=== PATIENT | male | born 1960 | race Caucasian/White ===

== ENCOUNTER → 2019-10-27 | Emergency (ER) | payer MEDICAID ==
[~2019-10-27] VITALS: Ht 182.9 cm; Wt 90.7 kg
[~2019-10-27] MED LIST: AMLO10TA13; CARV3.1240; CLON0.2T; DOXA4TAB5 PO; HYDR-4298 PO; HYDR25TA4; LISI40TA; OXY20CRT; POTASSIUM CHL 20 Meq TABLET PO ONE
[2019-10-27 18:36] LABS: Basophils # (auto) 0.1 10 ^3/uL (0-0.2); Basophils % (auto) 1.7 % (0.0-2.0); Eosinophils # (auto) 0.5 10 ^3/uL (0-0.8); Hematocrit 41.6 % (41.0-53.0); Hemoglobin 14.1 g/dL (13.5-17.5); Lymphocytes # (auto) 1.7 10 ^3/uL (0.4-5.4); Lymphocytes % (auto) 25.1 % (10.0-50.0); Mean Corpuscular Hemoglobin 30.6 pg (28.0-32.0); Mean Corpuscular Volume 90.1 fL (80.0-100.0); Monocytes # (auto) 0.7 10 ^3/uL (0-1.3); Monocytes % (auto) 10.5 % (0.0-12.0); Neutrophils # (auto) 3.7 10 ^3/uL (1.6-8.6); Neutrophils % (auto) 54.7 % (37.0-80.0); Nucleated Red Blood Cells % 0.1 %; Platelet Count (auto) 236 10^3/uL (140-450); Red Blood Cells 4.62 10^6/uL (4.5-5.90); Red Cell Distribution Width 14.3 % (11.8-14.3); White Blood Cell 6.7 10^3/uL (4.4-10.8)
[2019-10-27 18:48] LABS: Albumin 2.7 g/dL (3.4-5.0); Anion Gap 8 (5-15); BUN/Creatinine Ratio 21.9; Blood Urea Nitrogen 44 mg/dL (7-18); Calcium 8.3 mg/dL (8.5-10.1); Carbon Dioxide 27 mmol/L (21-32); Chloride 102 mmol/L (98-107); GFR African American 44 mL/min; GFR Non-African American 37 mL/min; Glucose 261 mg/dL (74-106); Sodium 137 mmol/L (136-145)
[2019-10-27 18:55] LABS: Alanine Aminotransferase 41 U/L (16-61); Alkaline Phosphatase 156 U/L (45-117); Aspartate Aminotransferase 28 U/L (15-37); Bilirubin, Total 0.4 mg/dL (0.2-1.0); Total Protein 6.5 g/dL (6.4-8.2)
[2019-10-27 19:39] VITALS: BP 125/85
== END | disposition home or self-care (01) ==
LOC: EDUNIT# 17:08 → EDBD 17:19 → ER 17:19
DX: I13.0 Hypertensive heart and chronic kidney disease with heart failure and stage 1 through stage 4 chronic kidney disease, or unspecified chronic kidney disease (principal); N18.3 Chronic kidney disease, stage 3 (moderate); I50.9 Heart failure, unspecified; R79.89 Other specified abnormal findings of blood chemistry; R74.8 Abnormal levels of other serum enzymes; J44.9 Chronic obstructive pulmonary disease, unspecified; E78.5 Hyperlipidemia, unspecified
CPT/HCPCS: 36415; 70450; 71045; 80053; 83880; 84443; 84484; 85025; 93005

== ENCOUNTER 2020-10-03 21:02 | Emergency (ER) | payer MEDICAID ==
[~2020-10-03] VITALS: Ht 182.9 cm; Wt 81.6 kg
[~2020-10-03 21:02] MED LIST changes: +AMLO-496; -AMLO10TA13; -LISI40TA; +LISI40TA11; -POTASSIUM CHL 20 Meq TABLET PO ONE
[2020-10-03 22:13] LABS: Basophils # (auto) 0.1 10 ^3/uL (0-0.2); Basophils % (auto) 1.4 % (0.0-2.0); Eosinophils # (auto) 0.6 10 ^3/uL (0-0.8); Eosinophils % (auto) 6.9 % (0.0-7.0); Hematocrit 45.6 % (41.0-53.0); Hemoglobin 15.8 g/dL (13.5-17.5); Lymphocytes # (auto) 2.2 10 ^3/uL (0.4-5.4); Lymphocytes % (auto) 26.8 % (10.0-50.0); Mean Corpuscular Hemoglobin 30.6 pg (28.0-32.0); Mean Corpuscular Hgb Conc. 34.8 g/dL (32.0-36.0); Monocytes # (auto) 0.6 10 ^3/uL (0-1.3); Neutrophils # (auto) 4.6 10 ^3/uL (1.6-8.6); Neutrophils % (auto) 56.9 % (37.0-80.0); Nucleated Red Blood Cells % 0.1 %; Platelet Count (auto) 293 10^3/uL (140-450); Red Blood Cells 5.18 10^6/uL (4.5-5.90); Red Cell Distribution Width 15.3 % (11.8-14.3); White Blood Cell 8.1 10^3/uL (4.4-10.8)
[2020-10-03 22:30] LABS: Alanine Aminotransferase 25 U/L (16-61); Albumin 3.3 g/dL (3.4-5.0); Anion Gap 5 (5-15); Aspartate Aminotransferase 39 U/L (15-37); BUN/Creatinine Ratio 16.2; Blood Urea Nitrogen 32 mg/dL (7-18); Calcium 8.8 mg/dL (8.5-10.1); Carbon Dioxide 27 mmol/L (21-32); Chloride 101 mmol/L (98-107); GFR African American 45 mL/min; GFR Non-African American 37 mL/min; Glucose 137 mg/dL (74-106); Potassium 4.8 mmol/L (3.5-5.1); Sodium 133 mmol/L (136-145)
[2020-10-03] MEDS ORDERED: MORPHINE SULF INJ 2 MG/ML SYRINGE 1ML IV ONE (22:30)
[2020-10-03 22:34] LABS: Alkaline Phosphatase 137 U/L (45-117); Bilirubin, Total 0.5 mg/dL (0.2-1.0); Total Protein 7.5 g/dL (6.4-8.2)
[2020-10-04 02:24] VITALS: BP 154/102
== END 2020-10-04 02:26 | disposition home or self-care (01) ==
LOC: EDBD 21:02 → ER 21:08
DX: G93.89 Other specified disorders of brain (principal); I11.0 Hypertensive heart disease with heart failure; I50.9 Heart failure, unspecified; J44.9 Chronic obstructive pulmonary disease, unspecified; E78.5 Hyperlipidemia, unspecified; F17.210 Nicotine dependence, cigarettes, uncomplicated; Z90.49 Acquired absence of other specified parts of digestive tract
CPT/HCPCS: 36415; 70450; 80053; 83880; 84484; 85025; 93005; 96374; 99285; J2270

== ENCOUNTER 2020-11-24 19:42 | Emergency (ER) | payer MEDICAID ==
[~2020-11-24] VITALS: Ht 177.8 cm; Wt 74.8 kg
[2020-11-24 19:44] VITALS: BP 159/106
[2020-11-24 20:47] LABS: Urine Bacteria NONE SEEN /hpf (None Seen); Urine Blood Negative /uL (Negative); Urine Specific Gravity 1.013 (1.001-1.035); Urine WBC 1 /hpf (0 - 3)
== END 2020-11-24 23:03 | disposition left against medical advice (07) ==
LOC: EDBD 19:42 → EDUNIT# 19:42 → ER 19:46
DX: L02.212 Cutaneous abscess of back [any part, except buttock and flank] (principal); Z53.21 Procedure and treatment not carried out due to patient leaving prior to being seen by health care provider
CPT/HCPCS: 81001

== ENCOUNTER 2021-08-28 23:29 | Inpatient (IN) | payer MEDICAID ==
[~2021-08-28] VITALS: Ht 185.4 cm; Wt 83.9 kg
[~2021-08-28 23:29] MED LIST changes: -DOXA4TAB5 PO; +DOXA4TAB6 PO
[2021-08-28] MEDS ORDERED: ADENOSINE 6 MG/2 ML INJ IV ONE ×2 (23:35→23:45)
[2021-08-28] MEDS ORDERED: IOHEXOL 350 MG/ML 100ML IJ ONE (23:49)
[2021-08-29] VITALS (25 sets, daily range): BP systolic 121–204; BP diastolic 77–148
[2021-08-29 00:16] LABS: Basophils # (auto) 0.2 10 ^3/uL (0-0.2); Basophils % (auto) 2.6 % (0.0-2.0); Eosinophils # (auto) 0.4 10 ^3/uL (0-0.8); Eosinophils % (auto) 6.4 % (0.0-7.0); Hemoglobin 16.8 g/dL (13.5-17.5); Lymphocytes # (auto) 1.7 10 ^3/uL (0.4-5.4); Lymphocytes % (auto) 27.3 % (10.0-50.0); Mean Corpuscular Hemoglobin 30.1 pg (28.0-32.0); Mean Corpuscular Hgb Conc. 34.2 g/dL (32.0-36.0); Monocytes # (auto) 0.4 10 ^3/uL (0-1.3); Monocytes % (auto) 6.6 % (0.0-12.0); Neutrophils # (auto) 3.6 10 ^3/uL (1.6-8.6); Neutrophils % (auto) 57.1 % (37.0-80.0); Nucleated Red Blood Cells % 0.2 %; Red Blood Cells 5.57 10^6/uL (4.5-5.90); Red Cell Distribution Width 14.9 % (11.8-14.3); White Blood Cell 6.4 10^3/uL (4.4-10.8)
[2021-08-29 00:25] LABS: Albumin 3.2 g/dL (3.4-5.0); BUN/Creatinine Ratio 11.9; Calcium 8.4 mg/dL (8.5-10.1); Magnesium 2.2 mg/dL (1.6-2.6); Potassium 3.2 mmol/L (3.5-5.1)
[2021-08-29 00:27] LABS: Bilirubin, Total 0.6 mg/dL (0.2-1.0); Total Protein 6.7 g/dL (6.4-8.2)
[2021-08-29 00:39] LABS: INR 1.14 (0.9-1.15); Partial Thromboplastin Time 33.3 sec (23.6-33.0)
[2021-08-29] MEDS ORDERED: SODIUM CHLORIDE 0.9% 1,000 ML IV ONE ×2 (00:45→04:45)
[2021-08-29] MEDS ORDERED: diazePAM 5 MG TAB PO ONE (02:00)
[2021-08-29] MEDS ORDERED: HYDROcodone-ACET 5/325MG TAB PO ONE (02:00)
[2021-08-29 02:06] LABS: Urine WBC None Seen /hpf (0 - 3)
[2021-08-29 02:23] LABS: Urine Bacteria NONE SEEN /hpf (None Seen); Urine Blood Negative /uL (Negative)
[2021-08-29] MEDS ORDERED: NITROGLYCERIN 2% OINT 1GM PKG TD ONE (06:00)
[2021-08-29] MEDS ORDERED: hydrALAZINE HCL 20 MG/ML VL IV ONE (06:45)
[2021-08-29] MEDS ORDERED: NITROGLYCERIN 0.4 MG SL TAB SL PRN (11:30)
[2021-08-29] MEDS ORDERED: MORPHINE SULFATE INJECTION 2 MG/ML SYRG IV PRN (11:30)
[2021-08-29] MEDS ORDERED: ONDANSETRON HCL 4 MG/2 ML VIAL IV PRN (11:30)
[2021-08-29] MEDS: METOPROLOL TARTRATE 1MG/1ML-5ML VIAL IV PRN (12:07)
[2021-08-29] MEDS: hydrALAZINE HCL 25 MG TAB PO SCH ×2 (12:11→21:30)
[2021-08-29] MEDS: SODIUM CHLORIDE 0.9% 1,000 ML IV SCH ×2 (12:44→19:20)
[2021-08-29] MEDS ORDERED: DOXAZOSIN MESYL 2 MG TAB PO SCH (13:00)
[2021-08-29] MEDS ORDERED: oxyCODONE ER 20 MG TAB PO SCH (14:00)
[2021-08-29] MEDS ORDERED: cloNIDine HCL 0.1 MG TAB PO ONE (14:45)
[2021-08-29] MEDS ORDERED: CARVEDILOL 3.125 MG TAB PO ONE (14:45)
[2021-08-29] MEDS ORDERED: hydrALAZINE HCL 25 MG TAB PO ONE (14:45)
[2021-08-29 16:41] LABS: BUN/Creatinine Ratio 9.9; Calcium 8.3 mg/dL (8.5-10.1)
[2021-08-29] MEDS: NITROGLYCERIN 50MG/250ML 250 ML IV SCH (18:00)
[2021-08-29] MEDS ORDERED: POTASSIUM CHL 20 Meq TABLET PO ONE (18:15)
[2021-08-29 18:19] LABS: Alcohol, Urine < 3.0 mg/dL (0-10); Amphetamine Screen, Urine POSITIVE (NEGATIVE); Barbiturate Scree,Urine NEGATIVE (NEGATIVE); Benzodiazephine Screen, Urine NEGATIVE (NEGATIVE); Cannabinoid Screen, Urine NEGATIVE (NEGATIVE); Cocaine Screen, Urine NEGATIVE (NEGATIVE); Opiate Scree,Urine NEGATIVE (NEGATIVE); Phencyclidine Screen, Urine NEGATIVE (NEGATIVE)
[2021-08-29] MEDS: cloNIDine HCL 0.1 MG TAB PO SCH (21:31)
[2021-08-29] MEDS: ENOXAPARIN SOD 60 MG/0.6 ML SYRINGE SC SCH (21:32)
[2021-08-29] MEDS: ATORVASTATIN 20 MG TAB PO SCH (21:32)
[2021-08-29] MEDS ORDERED: CARVEDILOL 3.125 MG TAB PO SCH (22:00)
[2021-08-29] MEDS: oxyCODONE ER 20 MG TAB PO SCH (22:03)
[2021-08-30] VITALS (50 sets, daily range): BP systolic 113–184; BP diastolic 76–118
[2021-08-30] MEDS: SODIUM CHLORIDE 0.9% 1,000 ML IV SCH ×2 (00:50→06:51)
[2021-08-30] MEDS: METOPROLOL TARTRATE 1MG/1ML-5ML VIAL IV PRN ×2 (01:11→07:56)
[2021-08-30 04:56] LABS: Basophils # (auto) 0.1 10 ^3/uL (0-0.2); Basophils % (auto) 2.5 % (0.0-2.0); Eosinophils # (auto) 0.5 10 ^3/uL (0-0.8); Eosinophils % (auto) 7.5 % (0.0-7.0); Hematocrit 43.8 % (41.0-53.0); Hemoglobin 14.7 g/dL (13.5-17.5); Lymphocytes # (auto) 1.9 10 ^3/uL (0.4-5.4); Lymphocytes % (auto) 32.2 % (10.0-50.0); Mean Corpuscular Hemoglobin 29.8 pg (28.0-32.0); Mean Corpuscular Hgb Conc. 33.6 g/dL (32.0-36.0); Mean Corpuscular Volume 88.6 fL (80.0-100.0); Monocytes # (auto) 0.5 10 ^3/uL (0-1.3); Monocytes % (auto) 7.8 % (0.0-12.0); Nucleated Red Blood Cells % 0.2 %; Red Blood Cells 4.95 10^6/uL (4.5-5.90); Red Cell Distribution Width 14.9 % (11.8-14.3); White Blood Cell 6.1 10^3/uL (4.4-10.8)
[2021-08-30] MEDS: hydrALAZINE HCL 25 MG TAB PO SCH ×3 (05:05→22:17)
[2021-08-30 05:14] LABS: BUN/Creatinine Ratio 12.9; Calcium 8.3 mg/dL (8.5-10.1); INR 1.14 (0.9-1.15); Potassium 3.4 mmol/L (3.5-5.1)
[2021-08-30] MEDS: NITROGLYCERIN 50MG/250ML 250 ML IV SCH (06:22)
[2021-08-30] MEDS: cloNIDine HCL 0.1 MG TAB PO SCH ×2 (10:00→22:16)
[2021-08-30] MEDS ORDERED: hydrALAZINE HCL 25 MG TAB PO SCH (10:00)
[2021-08-30] MEDS: ENOXAPARIN SOD 60 MG/0.6 ML SYRINGE SC SCH ×2 (10:00→22:17)
[2021-08-30] MEDS: oxyCODONE ER 20 MG TAB PO SCH ×2 (10:00→22:35)
[2021-08-30] MEDS: ASPirin 81 mg TAB PO SCH (10:00)
[2021-08-30] MEDS: LABETALOL HCL 200 MG TAB PO SCH ×2 (13:50→22:15)
[2021-08-30] MEDS: ATORVASTATIN 20 MG TAB PO SCH (22:15)
[2021-08-31] VITALS (14 sets, daily range): BP systolic 101–149; BP diastolic 69–103
[2021-08-31] MEDS: SODIUM CHLORIDE 0.9% 1,000 ML IV SCH (04:35)
[2021-08-31 05:07] LABS: BUN/Creatinine Ratio 13.4; Calcium 8.1 mg/dL (8.5-10.1); Potassium 3.3 mmol/L (3.5-5.1)
[2021-08-31] MEDS: LABETALOL HCL 200 MG TAB PO SCH ×2 (06:00→14:00)
[2021-08-31] MEDS: hydrALAZINE HCL 25 MG TAB PO SCH ×2 (09:13→14:22)
[2021-08-31] MEDS: oxyCODONE ER 20 MG TAB PO SCH (09:13)
[2021-08-31] MEDS: ASPirin 81 mg TAB PO SCH (09:13)
[2021-08-31] MEDS: ENOXAPARIN SOD 60 MG/0.6 ML SYRINGE SC SCH (09:14)
[2021-08-31] MEDS: cloNIDine HCL 0.1 MG TAB PO SCH (10:00)
[2021-08-31] MEDS ORDERED: POTASSIUM CHL 20 Meq TABLET PO ONE (11:45)
[2021-08-31] MEDS ORDERED: DOXA4TAB6 PO (11:46)
[2021-08-31] MEDS ORDERED: AMLO-496 PO (11:46)
[2021-08-31] MEDS ORDERED: ATOR20TA50 PO (11:46)
[2021-08-31] MEDS ORDERED: CLON0.1T PO (11:46)
[2021-08-31] MEDS ORDERED: HYDR25TA87 PO (11:46)
[2021-08-31] MEDS ORDERED: ASPI1CHW15 PO (11:46)
== END 2021-08-31 15:32 | disposition home health service (06) | DRG 201 ==
LOC: ER 23:29 → EDBD 23:29 → TELE 08-29 11:26 → ICU CENTRL 08-29 12:25 → DOU IN ICU 08-29 12:29
PROVIDERS: ADMIT Hospitalist; ATTEND Hospitalist
PROC: 5A2204Z Restoration of Cardiac Rhythm, Single (ICD-10-PCS; principal; 2021-08-29)
DX: I47.1 Supraventricular tachycardia (principal); I13.0 Hypertensive heart and chronic kidney disease with heart failure and stage 1 through stage 4 chronic kidney disease, or unspecified chronic kidney disease; I50.9 Heart failure, unspecified; F17.210 Nicotine dependence, cigarettes, uncomplicated; N18.30 Chronic kidney disease, stage 3 unspecified; J44.9 Chronic obstructive pulmonary disease, unspecified; E78.5 Hyperlipidemia, unspecified; F15.10 Other stimulant abuse, uncomplicated; Z20.822 Contact with and (suspected) exposure to COVID-19; I16.0 Hypertensive urgency; Z85.841 Personal history of malignant neoplasm of brain; Z91.14 Patient's other noncompliance with medication regimen; Z88.8 Allergy status to other drugs, medicaments and biological substances; Z90.49 Acquired absence of other specified parts of digestive tract
CPT/HCPCS: 36415; 71045; 71275; 76870; 80048; 80053; 80307; 81001; 83735; 83880; 84484; 85025; 85379; 85610; 85730; 87081; 93005; 93306; 96361; 96374; 96375; 99291; G0378; J0153

== ENCOUNTER 2021-08-31 19:59 | Inpatient (IN) | payer MEDICAID ==
[~2021-08-31] VITALS: Ht 182.9 cm; Wt 63.9 kg
[~2021-08-31 19:59] MED LIST changes: +AMLO-496 PO; +ASPI1CHW15 PO; +ATOR20TA50 PO; +CLON0.1T PO; +HYDR25TA87 PO
[2021-08-31 22:19] LABS: Basophils # (auto) 0.2 10 ^3/uL (0-0.2); Basophils % (auto) 2.7 % (0.0-2.0); Eosinophils # (auto) 0.5 10 ^3/uL (0-0.8); Eosinophils % (auto) 8.2 % (0.0-7.0); Hematocrit 42.5 % (41.0-53.0); Hemoglobin 14.4 g/dL (13.5-17.5); Lymphocytes # (auto) 1.4 10 ^3/uL (0.4-5.4); Mean Corpuscular Hgb Conc. 33.9 g/dL (32.0-36.0); Mean Corpuscular Volume 88.6 fL (80.0-100.0); Monocytes # (auto) 0.4 10 ^3/uL (0-1.3); Monocytes % (auto) 6.1 % (0.0-12.0); Neutrophils # (auto) 3.8 10 ^3/uL (1.6-8.6); Nucleated Red Blood Cells % 0.2 %; Red Cell Distribution Width 15.1 % (11.8-14.3); White Blood Cell 6.3 10^3/uL (4.4-10.8)
[2021-08-31 22:26] LABS: Calcium 8.4 mg/dL (8.5-10.1); Potassium 3.8 mmol/L (3.5-5.1)
[2021-08-31 22:29] LABS: Bilirubin, Total 0.5 mg/dL (0.2-1.0); Total Protein 6.4 g/dL (6.4-8.2)
[2021-08-31] MEDS ORDERED: SODIUM CHLORIDE 0.9% 500 ML IV ONE (23:15)
[2021-09-01 00:45] LABS: Urine Bacteria NONE SEEN /hpf (None Seen); Urine Blood Negative /uL (Negative); Urine WBC <1 /hpf (0 - 3)
[2021-09-01 00:51] LABS: Alcohol, Urine < 3.0 mg/dL (0-10); Amphetamine Screen, Urine NEGATIVE (NEGATIVE); Barbiturate Scree,Urine NEGATIVE (NEGATIVE); Cannabinoid Screen, Urine NEGATIVE (NEGATIVE); Cocaine Screen, Urine NEGATIVE (NEGATIVE); Opiate Scree,Urine NEGATIVE (NEGATIVE); Phencyclidine Screen, Urine NEGATIVE (NEGATIVE)
[2021-09-01 00:57] LABS: Benzodiazephine Screen, Urine POSITIVE (NEGATIVE)
[2021-09-01] MEDS ORDERED: NIFEdipine 10 MG CAP PO ONE (03:15)
[2021-09-01] MEDS ORDERED: hydrALAZINE HCL 25 MG TAB PO SCH (03:15)
[2021-09-01] MEDS: hydrALAZINE HCL 25 MG TAB PO SCH ×2 (11:05→20:22)
[2021-09-01] MEDS ORDERED: cloNIDine HCL 0.1 MG TAB PO ONE (11:45)
[2021-09-01] MEDS: cloNIDine HCL 0.1 MG TAB PO SCH ×2 (14:44→22:00)
[2021-09-01 22:00] VITALS: BP 148/103
[2021-09-01] MEDS: DexAMETHasone 4 MG TAB PO SCH (22:00)
[2021-09-02] VITALS (7 sets, daily range): BP systolic 116–149; BP diastolic 77–103
[2021-09-02] MEDS: hydrALAZINE HCL 25 MG TAB PO SCH ×3 (03:00→18:29)
[2021-09-02] MEDS: DexAMETHasone 4 MG TAB PO SCH ×4 (06:01→21:56)
[2021-09-02] MEDS: cloNIDine HCL 0.1 MG TAB PO SCH ×3 (06:01→21:56)
[2021-09-02] MEDS: amLODIPine BESYLATE 5 MG TAB PO SCH (09:30)
[2021-09-02] MEDS ORDERED: amLODIPine BESYLATE 5 MG TAB PO SCH (10:00)
[2021-09-02] MEDS: HYDROcodone-ACET 5/325MG TAB PO PRN (23:00)
[2021-09-03] MEDS: HYDROcodone-ACET 5/325MG TAB PO PRN ×2 (03:33→17:11)
[2021-09-03] MEDS: hydrALAZINE HCL 25 MG TAB PO SCH ×3 (03:33→18:18)
[2021-09-03 05:04] VITALS: BP 147/97
[2021-09-03] MEDS: DexAMETHasone 4 MG TAB PO SCH ×4 (05:56→21:59)
[2021-09-03] MEDS: cloNIDine HCL 0.1 MG TAB PO SCH ×3 (05:56→21:59)
[2021-09-03 07:45] VITALS: BP 138/92
[2021-09-03 08:42] VITALS: BP 138/92
[2021-09-03] MEDS: amLODIPine BESYLATE 5 MG TAB PO SCH (09:31)
[2021-09-03 12:48] VITALS: BP 137/94
[2021-09-03] MEDS ORDERED: DEX4T PO (13:20)
[2021-09-03 16:49] VITALS: BP 140/89
[2021-09-03 22:00] VITALS: BP 156/103
[2021-09-04] MEDS: HYDROcodone-ACET 5/325MG TAB PO PRN ×2 (00:39→09:18)
[2021-09-04] MEDS: hydrALAZINE HCL 25 MG TAB PO SCH ×3 (03:00→17:18)
[2021-09-04 05:00] VITALS: BP 151/94
[2021-09-04] MEDS: cloNIDine HCL 0.1 MG TAB PO SCH ×2 (06:10→13:48)
[2021-09-04] MEDS: DexAMETHasone 4 MG TAB PO SCH (06:11)
[2021-09-04 08:25] VITALS: BP 156/94
[2021-09-04 09:00] VITALS: BP 156/94
[2021-09-04] MEDS: amLODIPine BESYLATE 5 MG TAB PO SCH (09:17)
[2021-09-04] MEDS ORDERED: DexAMETHasone 4 MG TAB PO SCH (10:00)
[2021-09-04] MEDS ORDERED: FAMOTIDINE 20 MG TAB PO SCH (10:00)
[2021-09-04] MEDS ORDERED: oxyCODONE ER 10 MG TAB PO SCH (10:00)
[2021-09-04 13:00] VITALS: BP 149/96
[2021-09-04 17:00] VITALS: BP 132/83
[2021-09-04 17:26] VITALS: BP 132/83
[2021-09-04] MEDS ORDERED: SENNA 8.6 MG TAB PO SCH (22:00)
== END 2021-09-04 18:37 | DRG 58 ==
LOC: EDBD 19:59 → ER 20:03 → TELE 09-01 18:20 → TELE-WESTW 09-01 21:00
PROVIDERS: ADMIT Hospitalist; ATTEND Hospitalist
DX: G93.9 Disorder of brain, unspecified (principal); I13.0 Hypertensive heart and chronic kidney disease with heart failure and stage 1 through stage 4 chronic kidney disease, or unspecified chronic kidney disease; I50.9 Heart failure, unspecified; D49.6 Neoplasm of unspecified behavior of brain; F15.10 Other stimulant abuse, uncomplicated; Z20.822 Contact with and (suspected) exposure to COVID-19; N18.30 Chronic kidney disease, stage 3 unspecified; F17.210 Nicotine dependence, cigarettes, uncomplicated; J44.9 Chronic obstructive pulmonary disease, unspecified; Z82.49 Family history of ischemic heart disease and other diseases of the circulatory system; Z83.3 Family history of diabetes mellitus; Z91.19 Patient's noncompliance with other medical treatment and regimen; Z90.49 Acquired absence of other specified parts of digestive tract
CPT/HCPCS: 36415; 70450; 71045; 80053; 80307; 80320; 81001; 83880; 84484; 85025; 96360; 97116; 97163; 97530; G0378

== ENCOUNTER 2021-09-12 21:20 | Inpatient (IN) | payer MEDICAID ==
[~2021-09-12] VITALS: Ht 188 cm; Wt 91.5 kg
[~2021-09-12 21:20] MED LIST changes: -AMLO-496; -CARV3.1240; -CLON0.2T; +DEX4T PO; -HYDR-4298 PO; -HYDR25TA4; -LISI40TA11
[2021-09-12 22:22] LABS: Basophils # (auto) 0 10 ^3/uL (0-0.2); Basophils % (auto) 0.1 % (0.0-2.0); Eosinophils # (auto) 0.1 10 ^3/uL (0-0.8); Eosinophils % (auto) 0.6 % (0.0-7.0); Hematocrit 41.1 % (41.0-53.0); Hemoglobin 13.8 g/dL (13.5-17.5); Lymphocytes # (auto) 1.1 10 ^3/uL (0.4-5.4); Mean Corpuscular Hemoglobin 29.9 pg (28.0-32.0); Mean Corpuscular Hgb Conc. 33.6 g/dL (32.0-36.0); Mean Corpuscular Volume 89.1 fL (80.0-100.0); Monocytes # (auto) 1.4 10 ^3/uL (0-1.3); Monocytes % (auto) 7.8 % (0.0-12.0); Neutrophils # (auto) 15.1 10 ^3/uL (1.6-8.6); Neutrophils % (auto) 85.5 % (37.0-80.0); Red Blood Cells 4.61 10^6/uL (4.5-5.90); Red Cell Distribution Width 15.5 % (11.8-14.3); White Blood Cell 17.6 10^3/uL (4.4-10.8)
[2021-09-12 22:43] LABS: Calcium 8.2 mg/dL (8.5-10.1); Magnesium 2.3 mg/dL (1.6-2.6); Potassium 4.1 mmol/L (3.5-5.1)
[2021-09-12 22:47] LABS: INR 1.13 (0.9-1.15); Partial Thromboplastin Time 25.6 sec (23.6-33.0)
[2021-09-12 22:49] LABS: Albumin 2.5 g/dL (3.4-5.0); BUN/Creatinine Ratio 34.8; Bilirubin, Total 0.4 mg/dL (0.2-1.0); Total Protein 5.3 g/dL (6.4-8.2)
[2021-09-13 06:26] LABS: Urine Bacteria NONE SEEN /hpf (None Seen); Urine Blood Negative /uL (Negative); Urine Specific Gravity 1.015 (1.001-1.035); Urine WBC <1 /hpf (0 - 3)
[2021-09-13] MEDS ORDERED: AZITHROMYCIN 250 MG TAB PO ONE (16:00)
[2021-09-13] MEDS ORDERED: cefTRIAXone 1GM/50ML D5W 50 ML IV ONE (16:00)
[2021-09-13] MEDS ORDERED: ONDANSETRON HCL 4 MG/2 ML VIAL IV PRN (16:45)
[2021-09-13] MEDS ORDERED: SODIUM CHLORIDE 0.9% 500 ML IV ONE (17:00)
[2021-09-13] MEDS ORDERED: hydrALAZINE HCL 20 MG/ML VL IV PRN (17:00)
[2021-09-13 21:15] VITALS: BP 159/68
[2021-09-13 21:58] LABS: Albumin 2.7 g/dL (3.4-5.0); Calcium 8.4 mg/dL (8.5-10.1); Potassium 3.6 mmol/L (3.5-5.1)
[2021-09-13 22:00] VITALS: BP 171/97
[2021-09-13 22:03] LABS: BUN/Creatinine Ratio 33.8; Bilirubin, Total 0.5 mg/dL (0.2-1.0)
[2021-09-13 22:36] LABS: Hematocrit 42.9 % (41.0-53.0); Hemoglobin 14.5 g/dL (13.5-17.5); Mean Corpuscular Hemoglobin 29.9 pg (28.0-32.0); Mean Corpuscular Hgb Conc. 33.7 g/dL (32.0-36.0); Mean Corpuscular Volume 88.7 fL (80.0-100.0); Red Blood Cells 4.84 10^6/uL (4.5-5.90); Red Cell Distribution Width 15.9 % (11.8-14.3); White Blood Cell 19.9 10^3/uL (4.4-10.8)
[2021-09-13 22:43] LABS: Basophils % (manual) 0 (0.0-2.0); Blast Cells 0; Promyelocytes % 0
[2021-09-13 23:12] LABS: Band Neutrophils % (manual) 3; Eosinophils % (manual) 2 (0-7); Lymphocytes % (manual) 7 (10.0-50.0); Metamyelocytes % 1; Monocytes % (manual) 7 (0-12); Myelocytes % 1; Reactive Lymphocytes 3
[2021-09-13] MEDS: ATORVASTATIN 20 MG TAB PO SCH (23:27)
[2021-09-14 05:00] VITALS: BP 154/97
[2021-09-14 06:14] LABS: Hematocrit 40.3 % (41.0-53.0); Hemoglobin 13.3 g/dL (13.5-17.5); Mean Corpuscular Hemoglobin 29.7 pg (28.0-32.0); Mean Corpuscular Hgb Conc. 33.1 g/dL (32.0-36.0); Mean Corpuscular Volume 89.8 fL (80.0-100.0); Red Blood Cells 4.48 10^6/uL (4.5-5.90); Red Cell Distribution Width 15.8 % (11.8-14.3); White Blood Cell 14.9 10^3/uL (4.4-10.8)
[2021-09-14 06:31] LABS: Basophils % (manual) 0 (0.0-2.0); Blast Cells 0; Metamyelocytes % 0; Myelocytes % 0; Potassium 3.4 mmol/L (3.5-5.1); Promyelocytes % 0; Reactive Lymphocytes 0
[2021-09-14 06:36] LABS: Albumin 2.3 g/dL (3.4-5.0); BUN/Creatinine Ratio 29.6; Calcium 7.7 mg/dL (8.5-10.1)
[2021-09-14 06:39] LABS: Bilirubin, Total 0.4 mg/dL (0.2-1.0)
[2021-09-14 07:10] LABS: Band Neutrophils % (manual) 2; Eosinophils % (manual) 1 (0-7); Lymphocytes % (manual) 22 (10.0-50.0); Monocytes % (manual) 2 (0-12)
[2021-09-14 08:00] VITALS: BP 154/97
[2021-09-14] MEDS: cefTRIAXone 1GM/50ML D5W 50 ML IV SCH (08:40)
[2021-09-14 09:00] VITALS: BP 143/94
[2021-09-14] MEDS: amLODIPine BESYLATE 5 MG TAB PO SCH (09:37)
[2021-09-14] MEDS: ENOXAPARIN SOD 40 MG/0.4 ML SYRINGE SC SCH (09:37)
[2021-09-14] MEDS: MORPHINE SULFATE INJECTION 2 MG/ML SYRG IV PRN ×2 (10:35→21:16)
[2021-09-14 13:00] VITALS: BP 121/79
[2021-09-14] MEDS: HYDROcodone-ACET 10/325MG TAB PO PRN (15:24)
[2021-09-14 17:00] VITALS: BP 123/84
[2021-09-14] MEDS: ATORVASTATIN 20 MG TAB PO SCH (21:16)
[2021-09-14 22:00] VITALS: BP 141/95
[2021-09-15] MEDS: MORPHINE SULFATE INJECTION 2 MG/ML SYRG IV PRN ×3 (01:16→16:45)
[2021-09-15] MEDS: HYDROcodone-ACET 10/325MG TAB PO PRN ×4 (03:35→21:02)
[2021-09-15 05:00] VITALS: BP 145/95
[2021-09-15 05:29] LABS: Hematocrit 40.6 % (41.0-53.0); Mean Corpuscular Hemoglobin 30.5 pg (28.0-32.0); Mean Corpuscular Hgb Conc. 34.5 g/dL (32.0-36.0); Mean Corpuscular Volume 88.4 fL (80.0-100.0); Red Blood Cells 4.59 10^6/uL (4.5-5.90)
[2021-09-15 05:50] LABS: Potassium 3.5 mmol/L (3.5-5.1)
[2021-09-15 06:08] LABS: Albumin 2.6 g/dL (3.4-5.0); BUN/Creatinine Ratio 25.5; Bilirubin, Total 0.3 mg/dL (0.2-1.0)
[2021-09-15 07:23] LABS: Basophils % (manual) 0 (0.0-2.0); Blast Cells 0; Metamyelocytes % 0; Myelocytes % 0; Promyelocytes % 0; Reactive Lymphocytes 0
[2021-09-15 08:00] VITALS: BP 135/94
[2021-09-15] MEDS: ENOXAPARIN SOD 40 MG/0.4 ML SYRINGE SC SCH ×2 (08:37→09:14)
[2021-09-15] MEDS: amLODIPine BESYLATE 5 MG TAB PO SCH (08:37)
[2021-09-15] MEDS: cefTRIAXone 1GM/50ML D5W 50 ML IV SCH (08:37)
[2021-09-15 09:00] VITALS: BP 135/94
[2021-09-15 13:00] VITALS: BP 137/92
[2021-09-15] MEDS: SODIUM CHLORIDE 0.9% 1,000 ML IV SCH ×2 (13:30→22:58)
[2021-09-15 15:23] LABS: Band Neutrophils % (manual) 1; Eosinophils % (manual) 1 (0-7); Lymphocytes % (manual) 13 (10.0-50.0); Monocytes % (manual) 7 (0-12)
[2021-09-15 17:00] VITALS: BP 139/87
[2021-09-15] MEDS: ATORVASTATIN 20 MG TAB PO SCH (21:02)
[2021-09-16] MEDS: HYDROcodone-ACET 10/325MG TAB PO PRN (02:37)
[2021-09-16 05:00] VITALS: BP 134/92
[2021-09-16 06:23] LABS: Albumin 2.7 g/dL (3.4-5.0); Calcium 8.2 mg/dL (8.5-10.1); Potassium 3.7 mmol/L (3.5-5.1)
[2021-09-16 06:27] LABS: BUN/Creatinine Ratio 22.1; Bilirubin, Total 0.2 mg/dL (0.2-1.0); Total Protein 6.1 g/dL (6.4-8.2)
[2021-09-16 06:36] LABS: Basophils # (auto) 0 10 ^3/uL (0-0.2); Basophils % (auto) 0.3 % (0.0-2.0); Eosinophils # (auto) 0.5 10 ^3/uL (0-0.8); Eosinophils % (auto) 3.8 % (0.0-7.0); Hemoglobin 13.4 g/dL (13.5-17.5); Lymphocytes # (auto) 1.9 10 ^3/uL (0.4-5.4); Lymphocytes % (auto) 13.9 % (10.0-50.0); Mean Corpuscular Hemoglobin 30.2 pg (28.0-32.0); Mean Corpuscular Hgb Conc. 33.5 g/dL (32.0-36.0); Mean Corpuscular Volume 90.3 fL (80.0-100.0); Monocytes # (auto) 1.5 10 ^3/uL (0-1.3); Monocytes % (auto) 10.8 % (0.0-12.0); Neutrophils # (auto) 9.7 10 ^3/uL (1.6-8.6); Neutrophils % (auto) 71.2 % (37.0-80.0); Red Blood Cells 4.44 10^6/uL (4.5-5.90); Red Cell Distribution Width 15.8 % (11.8-14.3); White Blood Cell 13.6 10^3/uL (4.4-10.8)
[2021-09-16 08:00] VITALS: BP 114/65
[2021-09-16 09:00] VITALS: BP 114/65
[2021-09-16] MEDS: SODIUM CHLORIDE 0.9% 1,000 ML IV SCH (09:00)
[2021-09-16] MEDS: cefTRIAXone 1GM/50ML D5W 50 ML IV SCH (09:36)
[2021-09-16] MEDS: amLODIPine BESYLATE 5 MG TAB PO SCH (09:36)
[2021-09-16] MEDS: MORPHINE SULFATE INJECTION 2 MG/ML SYRG IV PRN (09:46)
[2021-09-16] MEDS ORDERED: ASPirin-EC 81 mg tab PO SCH (10:00)
[2021-09-16] MEDS ORDERED: FAMO20TA10 PO (10:54)
[2021-09-16] MEDS ORDERED: ONDA-144 PO (10:54)
[2021-09-16 13:00] VITALS: BP 131/100
[2021-09-16 15:27] VITALS: BP 131/100
[2021-09-16] MEDS ORDERED: FUROSEMIDE 20 MG/2 ML VIAL IV ONE (15:30)
== END 2021-09-16 16:40 | disposition home or self-care (01) | DRG 424 ==
LOC: EDBD 21:20 → ER 21:20 → TELE 09-13 16:33 → TELE-CENTR 09-13 20:25
PROVIDERS: ADMIT Registered Nurse; ATTEND Internal Medicine
DX: D49.7 Neoplasm of unspecified behavior of endocrine glands and other parts of nervous system (principal); I13.0 Hypertensive heart and chronic kidney disease with heart failure and stage 1 through stage 4 chronic kidney disease, or unspecified chronic kidney disease; I31.3 Pericardial effusion (noninflammatory); J18.9 Pneumonia, unspecified organism; E44.0 Moderate protein-calorie malnutrition; N17.9 Acute kidney failure, unspecified; J44.0 Chronic obstructive pulmonary disease with (acute) lower respiratory infection; I50.9 Heart failure, unspecified; K52.9 Noninfective gastroenteritis and colitis, unspecified; J84.10 Pulmonary fibrosis, unspecified; E78.5 Hyperlipidemia, unspecified; F17.210 Nicotine dependence, cigarettes, uncomplicated; I25.2 Old myocardial infarction; K86.1 Other chronic pancreatitis; I25.10 Atherosclerotic heart disease of native coronary artery without angina pectoris; R80.9 Proteinuria, unspecified; E23.7 Disorder of pituitary gland, unspecified; K46.9 Unspecified abdominal hernia without obstruction or gangrene; N18.32 Chronic kidney disease, stage 3b; Z82.49 Family history of ischemic heart disease and other diseases of the circulatory system; Z83.3 Family history of diabetes mellitus; Z85.841 Personal history of malignant neoplasm of brain; Z86.711 Personal history of pulmonary embolism; Z86.718 Personal history of other venous thrombosis and embolism; Z86.73 Personal history of transient ischemic attack (TIA), and cerebral infarction without residual deficits; Z92.3 Personal history of irradiation; Z88.8 Allergy status to other drugs, medicaments and biological substances; Z90.49 Acquired absence of other specified parts of digestive tract; Z68.25 Body mass index [BMI] 25.0-25.9, adult
CPT/HCPCS: 36415; 70450; 71045; 74176; 80053; 80061; 81001; 82150; 83036; 83605; 83690; 83735; 83880; 84484; 85007; 85025; 85027; 85610; 85730; 93005; 93306; 96361; 96365; G0378; J0696

== ENCOUNTER 2021-12-09 09:29 | Inpatient (IN) | payer MEDICAID ==
[~2021-12-09] VITALS: Ht 175.3 cm; Wt 84.0 kg
[~2021-12-09 09:29] MED LIST changes: -DEX4T PO; +FAMO20TA10 PO; +ONDA-144 PO
[2021-12-09] MEDS ORDERED: SODIUM CHLORIDE 0.9% 1,000 ML IVB ONE (09:45)
[2021-12-09] MEDS ORDERED: SODIUM CHLORIDE 0.9% 1,000 ML IV ONE (09:45)
[2021-12-09] MEDS ORDERED: ONDANSETRON HCL 4 MG/2 ML VIAL IV ONE ×2 (10:30→11:45)
[2021-12-09] MEDS ORDERED: MORPHINE SULFATE INJ 2 MG/ml SYRG IV ONE (10:30)
[2021-12-09 10:54] LABS: Basophils # (auto) 0.1 10 ^3/uL (0-0.2); Basophils % (auto) 1.9 % (0.0-2.0); Eosinophils # (auto) 0.5 10 ^3/uL (0-0.8); Eosinophils % (auto) 10.2 % (0.0-7.0); Hematocrit 42.6 % (41.0-53.0); Hemoglobin 13.9 g/dL (13.5-17.5); Lymphocytes # (auto) 1.5 10 ^3/uL (0.4-5.4); Lymphocytes % (auto) 29.7 % (10.0-50.0); Mean Corpuscular Hemoglobin 28.6 pg (28.0-32.0); Mean Corpuscular Hgb Conc. 32.6 g/dL (32.0-36.0); Mean Corpuscular Volume 87.6 fL (80.0-100.0); Monocytes # (auto) 0.4 10 ^3/uL (0-1.3); Monocytes % (auto) 8.2 % (0.0-12.0); Neutrophils # (auto) 2.4 10 ^3/uL (1.6-8.6); Nucleated Red Blood Cells % 0.1 %; Red Blood Cells 4.86 10^6/uL (4.5-5.90); Red Cell Distribution Width 16.4 % (11.8-14.3); White Blood Cell 4.9 10^3/uL (4.4-10.8)
[2021-12-09 11:36] LABS: Lactic Acid w/Reflex 2.4 mmol/L (0.4-2.0)
[2021-12-09 11:41] LABS: Urine Bacteria FEW /hpf (None Seen); Urine Blood Negative /uL (Negative); Urine Hyaline Cast FEW /lpf (0 - 2); Urine Specific Gravity 1.016 (1.001-1.035); Urine WBC 2 /hpf (0 - 3)
[2021-12-09] MEDS ORDERED: MORPHINE SULFATE 4 MG/ML SYR/VIAL IV ONE (11:45)
[2021-12-09] MEDS ORDERED: DEXTROSE (50%) 50ML SYRG IV ONE (12:15)
[2021-12-09] MEDS ORDERED: NITROGLYCERIN 0.4 MG SL TAB SL PRN (14:00)
[2021-12-09] MEDS ORDERED: DEXTROSE (50%) 50ML SYRG IV PRN (14:00)
[2021-12-09] MEDS ORDERED: MORPHINE SULFATE INJ 2 MG/ml SYRG IV PRN (14:00)
[2021-12-09] MEDS: ACCU-CHEK COMFORT CURVE STRIP VI SCH ×10 (14:22→22:08)
[2021-12-09] MEDS ORDERED: NICOTINE 7MG/24HR TOPICAL PATCH TD ONE (14:30)
[2021-12-09 14:36] LABS: Albumin 2.9 g/dL (3.4-5.0); Calcium 7.9 mg/dL (8.5-10.1); Potassium 3.1 mmol/L (3.5-5.1)
[2021-12-09 14:39] LABS: BUN/Creatinine Ratio 9.7; Bilirubin, Total 0.8 mg/dL (0.2-1.0); Total Protein 6.8 g/dL (6.4-8.2)
[2021-12-09] MEDS ORDERED: DEXTROSE 10% 1,000 ML IV ONE (14:45)
[2021-12-09] MEDS ORDERED: PANTOPRAZOLE 40 MG/10 ML VIAL INJ IV ONE (14:45)
[2021-12-09] MEDS ORDERED: ENOXAPARIN SOD 80 MG/0.8ML SYRINGE SC ONE (15:15)
[2021-12-09 20:46] VITALS: BP 148/108
[2021-12-09] MEDS: BUDESONIDE (INHALATION) 180 MCG IH IN SCH (22:00)
[2021-12-09] MEDS: MORPHINE SULFATE INJ 2 MG/ml SYRG IV PRN (23:35)
[2021-12-10] MEDS: ACCU-CHEK COMFORT CURVE STRIP VI SCH ×6 (01:56→22:05)
[2021-12-10 05:09] LABS: Hematocrit 40.8 % (41.0-53.0); Hemoglobin 13.4 g/dL (13.5-17.5); Mean Corpuscular Hemoglobin 28.5 pg (28.0-32.0); Mean Corpuscular Volume 86.4 fL (80.0-100.0); Red Blood Cells 4.72 10^6/uL (4.5-5.90); Red Cell Distribution Width 16.1 % (11.8-14.3); White Blood Cell 5.2 10^3/uL (4.4-10.8)
[2021-12-10 05:10] LABS: Basophils % (manual) 0 (0.0-2.0); Blast Cells 0; Metamyelocytes % 0; Myelocytes % 0; Promyelocytes % 0; Reactive Lymphocytes 0
[2021-12-10 05:26] LABS: Albumin 2.9 g/dL (3.4-5.0); Potassium 3.3 mmol/L (3.5-5.1)
[2021-12-10 05:29] LABS: BUN/Creatinine Ratio 9.7; Bilirubin, Total 0.9 mg/dL (0.2-1.0); Total Protein 6.7 g/dL (6.4-8.2)
[2021-12-10 08:14] LABS: Band Neutrophils % (manual) 3; Eosinophils % (manual) 20 (0-7); Lymphocytes % (manual) 13 (10.0-50.0); Monocytes % (manual) 2 (0-12)
[2021-12-10] MEDS: PANTOPRAZOLE 40 MG/10 ML VIAL INJ IV SCH (08:58)
[2021-12-10] MEDS: NICOTINE 7MG/24HR TOPICAL PATCH TD SCH (08:58)
[2021-12-10] MEDS: ENOXAPARIN SOD 40 MG/0.4 ML SYRINGE SC SCH (08:58)
[2021-12-10] MEDS: ASCORBIC ACID 1,000 MG TAB PO SCH (08:59)
[2021-12-10] MEDS: CHOLECALCIFEROL (VITD3) 2,000 UNIT CAP/TAB PO SCH (08:59)
[2021-12-10] MEDS: ZINC SULFATE 220mg CAP or TAB PO SCH (08:59)
[2021-12-10] MEDS: DexAMETHasone SOD PHOS 10MG/1ML VIAL INJ IV SCH (08:59)
[2021-12-10] MEDS: BUDESONIDE (INHALATION) 180 MCG IH IN SCH ×3 (10:00→21:57)
[2021-12-10] MEDS ORDERED: AZITHROMYCIN 500MG/ 250ML 250 ML IV SCH (10:00)
[2021-12-10] MEDS ORDERED: SODIUM BICARB 50ML SYR 50 ML in D5W/SOD CHL 0.45% 1,000 ML IV SCH (10:30)
[2021-12-10 11:25] LABS: Protein, Urine 96.8 mg/dL (0.0-11.9)
[2021-12-10] MEDS ORDERED: AMIODARONE HCL 150 MG in D5W 5% 100 ML IV ONE (17:00)
[2021-12-10] MEDS: MAGNESIUM SULFATE 1GM/100ML 100 ML IV SCH ×3 (17:00→19:58)
[2021-12-10] MEDS ORDERED: AMIODARONE HCL (50 MG/ ML) 3 ML VIAL IV ONE (17:05)
[2021-12-10] MEDS ORDERED: AMIODARONE 450mg/250ml AE 250 ML IV SCH (17:15)
[2021-12-10] MEDS ORDERED: POTASSIUM CHLORIDE 20 MEQ, LIDOCAINE 1% (LOCAL ANESTH.) 2 ML in SODIUM CHL 0.9% 100 ML IV ONE (17:30)
[2021-12-10] MEDS ORDERED: dilTIAZem 125mg/125ml BAG KIT 125 ML IV SCH (18:15)
[2021-12-10] MEDS ORDERED: POTASSIUM EFFERVESENT TAB 25 MEQ PO ONE (20:00)
[2021-12-10 21:28] LABS: Amphetamine Screen, Urine POSITIVE (NEGATIVE); Barbiturate Scree,Urine NEGATIVE (NEGATIVE); Benzodiazephine Screen, Urine NEGATIVE (NEGATIVE); Cannabinoid Screen, Urine NEGATIVE (NEGATIVE); Cocaine Screen, Urine NEGATIVE (NEGATIVE); Opiate Scree,Urine NEGATIVE (NEGATIVE); Phencyclidine Screen, Urine NEGATIVE (NEGATIVE)
[2021-12-10] MEDS: ALBUTEROL SULF HFA 90MCG INH 200DOSE IN PRN (21:58)
[2021-12-10] MEDS: DOXYCYCLINE 100MG/250ML 250 ML IV SCH (22:05)
[2021-12-10] MEDS: AMIODARONE 450mg/250ml AE 250 ML IV SCH (23:05)
[2021-12-11] MEDS: ACCU-CHEK COMFORT CURVE STRIP VI SCH ×6 (02:13→22:17)
[2021-12-11 04:38] LABS: Basophils # (auto) 0.1 10 ^3/uL (0-0.2); Basophils % (auto) 1.2 % (0.0-2.0); Eosinophils # (auto) 0.7 10 ^3/uL (0-0.8); Eosinophils % (auto) 13.6 % (0.0-7.0); Hematocrit 38.7 % (41.0-53.0); Hemoglobin 12.9 g/dL (13.5-17.5); Lymphocytes # (auto) 0.8 10 ^3/uL (0.4-5.4); Lymphocytes % (auto) 15.7 % (10.0-50.0); Mean Corpuscular Hemoglobin 29.1 pg (28.0-32.0); Mean Corpuscular Hgb Conc. 33.4 g/dL (32.0-36.0); Monocytes # (auto) 0.3 10 ^3/uL (0-1.3); Monocytes % (auto) 6.6 % (0.0-12.0); Neutrophils # (auto) 3.3 10 ^3/uL (1.6-8.6); Neutrophils % (auto) 62.9 % (37.0-80.0); Nucleated Red Blood Cells % 0.1 %; Red Blood Cells 4.44 10^6/uL (4.5-5.90); Red Cell Distribution Width 15.8 % (11.8-14.3); White Blood Cell 5.3 10^3/uL (4.4-10.8)
[2021-12-11 04:51] LABS: Albumin 2.6 g/dL (3.4-5.0); Calcium 7.9 mg/dL (8.5-10.1); Magnesium 2.4 mg/dL (1.6-2.6)
[2021-12-11 04:55] LABS: BUN/Creatinine Ratio 11.1; Bilirubin, Total 0.6 mg/dL (0.2-1.0); Total Protein 5.8 g/dL (6.4-8.2)
[2021-12-11 05:04] LABS: Potassium 2.9 mmol/L (3.5-5.1)
[2021-12-11] MEDS: ALBUTEROL SULF HFA 90MCG INH 200DOSE IN PRN ×2 (06:09→21:33)
[2021-12-11] MEDS: BUDESONIDE (INHALATION) 180 MCG IH IN SCH ×2 (06:09→21:33)
[2021-12-11] MEDS: AMIODARONE 450mg/250ml AE 250 ML IV SCH (08:41)
[2021-12-11] MEDS ORDERED: POTASSIUM EFFERVESENT TAB 25 MEQ PO ONE (10:00)
[2021-12-11] MEDS: NICOTINE 7MG/24HR TOPICAL PATCH TD SCH (10:47)
[2021-12-11] MEDS: CHOLECALCIFEROL (VITD3) 2,000 UNIT CAP/TAB PO SCH (10:47)
[2021-12-11] MEDS: ASCORBIC ACID 1,000 MG TAB PO SCH (10:47)
[2021-12-11] MEDS: DexAMETHasone SOD PHOS 10MG/1ML VIAL INJ IV SCH (10:48)
[2021-12-11] MEDS: ENOXAPARIN SOD 40 MG/0.4 ML SYRINGE SC SCH (10:48)
[2021-12-11] MEDS: PANTOPRAZOLE 40 MG/10 ML VIAL INJ IV SCH (10:48)
[2021-12-11] MEDS: ZINC SULFATE 220mg CAP or TAB PO SCH (10:48)
[2021-12-11] MEDS: DOXYCYCLINE 100MG/250ML 250 ML IV SCH ×2 (10:49→22:17)
[2021-12-11] MEDS: POTASSIUM CHL 20MEQ/100ML 100 ML IV SCH ×3 (10:49→16:48)
[2021-12-11] MEDS: MORPHINE SULFATE INJ 2 MG/ml SYRG IV PRN (17:59)
[2021-12-11 18:42] VITALS: BP 141/100
[2021-12-11 22:00] VITALS: BP 140/105
[2021-12-11] MEDS: AMIODARONE HCL 200 MG TAB PO SCH (22:17)
[2021-12-11] MEDS: HYDROcodone-ACET 5/325MG TAB PO PRN (22:18)
[2021-12-12] MEDS: MORPHINE SULFATE INJ 2 MG/ml SYRG IV PRN ×4 (00:31→23:07)
[2021-12-12] MEDS: ACCU-CHEK COMFORT CURVE STRIP VI SCH ×5 (02:22→22:00)
[2021-12-12 05:00] VITALS: BP 170/117
[2021-12-12] MEDS ORDERED: DEXTROSE (50%) 50ML SYRG IV ONE (05:30)
[2021-12-12] MEDS ORDERED: DEXTROSE (50%) 50ML SYRG IV PRN (05:45)
[2021-12-12] MEDS: hydrALAZINE HCL 10 MG TAB PO PRN ×2 (06:12→21:32)
[2021-12-12] MEDS: InsuLIN REG 1unit/0.01ml Soln (100units/ml) SC SCH ×4 (06:20→22:00)
[2021-12-12] MEDS ORDERED: InsuLIN REG 1unit/0.01ml Soln (100units/ml) SC ONE (07:00)
[2021-12-12] MEDS ORDERED: ACCU-CHEK COMFORT CURVE STRIP VI ONE (07:00)
[2021-12-12 08:57] LABS: Basophils # (auto) 0 10 ^3/uL (0-0.2); Basophils % (auto) 0.1 % (0.0-2.0); Eosinophils # (auto) 0 10 ^3/uL (0-0.8); Hematocrit 39.1 % (41.0-53.0); Hemoglobin 12.7 g/dL (13.5-17.5); Lymphocytes # (auto) 0.6 10 ^3/uL (0.4-5.4); Lymphocytes % (auto) 11.7 % (10.0-50.0); Mean Corpuscular Hemoglobin 28.4 pg (28.0-32.0); Mean Corpuscular Hgb Conc. 32.4 g/dL (32.0-36.0); Mean Corpuscular Volume 87.6 fL (80.0-100.0); Monocytes # (auto) 0.2 10 ^3/uL (0-1.3); Monocytes % (auto) 3.9 % (0.0-12.0); Neutrophils # (auto) 4.1 10 ^3/uL (1.6-8.6); Neutrophils % (auto) 84.3 % (37.0-80.0); Red Blood Cells 4.46 10^6/uL (4.5-5.90); Red Cell Distribution Width 16.3 % (11.8-14.3); White Blood Cell 4.8 10^3/uL (4.4-10.8)
[2021-12-12 09:00] VITALS: BP 158/110
[2021-12-12 09:21] LABS: BUN/Creatinine Ratio 10.7; Calcium 8.7 mg/dL (8.5-10.1); Magnesium 2.4 mg/dL (1.6-2.6); Potassium 3.8 mmol/L (3.5-5.1)
[2021-12-12] MEDS: HYDROcodone-ACET 5/325MG TAB PO PRN (09:53)
[2021-12-12] MEDS: DexAMETHasone SOD PHOS 10MG/1ML VIAL INJ IV SCH (10:00)
[2021-12-12] MEDS: NICOTINE 7MG/24HR TOPICAL PATCH TD SCH (10:00)
[2021-12-12] MEDS: PANTOPRAZOLE 40 MG/10 ML VIAL INJ IV SCH (10:00)
[2021-12-12] MEDS: AMIODARONE HCL 200 MG TAB PO SCH ×2 (10:01→21:31)
[2021-12-12] MEDS: ASCORBIC ACID 1,000 MG TAB PO SCH (10:01)
[2021-12-12] MEDS: ENOXAPARIN SOD 40 MG/0.4 ML SYRINGE SC SCH (10:01)
[2021-12-12] MEDS: DOXYCYCLINE 100MG/250ML 250 ML IV SCH ×2 (10:01→21:30)
[2021-12-12] MEDS: BUDESONIDE (INHALATION) 180 MCG IH IN SCH ×2 (10:01→18:35)
[2021-12-12] MEDS: CHOLECALCIFEROL (VITD3) 2,000 UNIT CAP/TAB PO SCH (10:01)
[2021-12-12] MEDS: ZINC SULFATE 220mg CAP or TAB PO SCH (10:01)
[2021-12-12] MEDS ORDERED: POTASSIUM CHL 20 Meq TABLET PO ONE (12:00)
[2021-12-12 13:00] VITALS: BP 149/102
[2021-12-12 13:23] LABS: Hepatitis C Antibody Negative (Negative)
[2021-12-12 17:00] VITALS: BP 41/98
[2021-12-12] MEDS: ALBUTEROL SULF HFA 90MCG INH 200DOSE IN PRN (19:14)
[2021-12-12 20:00] VITALS: BP 169/117
[2021-12-12 22:00] VITALS: BP 147/101
[2021-12-13] MEDS: HYDROcodone-ACET 5/325MG TAB PO PRN ×2 (00:41→22:05)
[2021-12-13 05:00] VITALS: BP 156/101
[2021-12-13 05:42] LABS: Basophils # (auto) 0 10 ^3/uL (0-0.2); Eosinophils # (auto) 0 10 ^3/uL (0-0.8); Hematocrit 35.8 % (41.0-53.0); Lymphocytes # (auto) 0.7 10 ^3/uL (0.4-5.4); Mean Corpuscular Hemoglobin 29.2 pg (28.0-32.0); Mean Corpuscular Hgb Conc. 33.6 g/dL (32.0-36.0); Monocytes # (auto) 0.3 10 ^3/uL (0-1.3); Monocytes % (auto) 3.7 % (0.0-12.0); Neutrophils # (auto) 7.9 10 ^3/uL (1.6-8.6); Neutrophils % (auto) 88.3 % (37.0-80.0); Nucleated Red Blood Cells % 0.2 %; Red Blood Cells 4.12 10^6/uL (4.5-5.90); Red Cell Distribution Width 16.2 % (11.8-14.3); White Blood Cell 8.9 10^3/uL (4.4-10.8)
[2021-12-13 05:51] LABS: Albumin 2.6 g/dL (3.4-5.0); Calcium 8.7 mg/dL (8.5-10.1); Potassium 3.9 mmol/L (3.5-5.1)
[2021-12-13 05:56] LABS: BUN/Creatinine Ratio 12.5; Bilirubin, Total 0.4 mg/dL (0.2-1.0); Total Protein 6.3 g/dL (6.4-8.2)
[2021-12-13] MEDS: InsuLIN REG 1unit/0.01ml Soln (100units/ml) SC SCH ×4 (06:19→16:43)
[2021-12-13] MEDS: ACCU-CHEK COMFORT CURVE STRIP VI SCH ×4 (06:29→21:47)
[2021-12-13] MEDS: MORPHINE SULFATE INJ 2 MG/ml SYRG IV PRN ×3 (06:33→19:13)
[2021-12-13] MEDS: hydrALAZINE HCL 10 MG TAB PO PRN ×2 (06:34→14:35)
[2021-12-13] MEDS: ALBUTEROL SULF HFA 90MCG INH 200DOSE IN PRN ×2 (06:42→19:49)
[2021-12-13] MEDS: BUDESONIDE (INHALATION) 180 MCG IH IN SCH ×2 (06:42→19:49)
[2021-12-13 08:00] VITALS: BP 169/117
[2021-12-13 09:00] VITALS: BP 153/102
[2021-12-13] MEDS ORDERED: FAMOTIDINE 20 MG TAB PO SCH ×2 (10:00)
[2021-12-13] MEDS: DexAMETHasone SOD PHOS 10MG/1ML VIAL INJ IV SCH (10:33)
[2021-12-13] MEDS: DOXYCYCLINE 100MG/250ML 250 ML IV SCH ×2 (10:33→21:47)
[2021-12-13] MEDS: ZINC SULFATE 220mg CAP or TAB PO SCH (10:34)
[2021-12-13] MEDS: AMIODARONE HCL 200 MG TAB PO SCH ×2 (10:34→21:46)
[2021-12-13] MEDS: METOPROLOL TARTRATE 25 MG TAB PO SCH ×2 (10:35→21:46)
[2021-12-13] MEDS: ASCORBIC ACID 1,000 MG TAB PO SCH (10:36)
[2021-12-13] MEDS: CHOLECALCIFEROL (VITD3) 2,000 UNIT CAP/TAB PO SCH (10:36)
[2021-12-13] MEDS: ENOXAPARIN SOD 40 MG/0.4 ML SYRINGE SC SCH (10:37)
[2021-12-13] MEDS: NICOTINE 7MG/24HR TOPICAL PATCH TD SCH (10:37)
[2021-12-13] MEDS: amLODIPine BESYLATE 5 MG TAB PO SCH (11:45)
[2021-12-13 13:00] VITALS: BP 156/108
[2021-12-13] MEDS ORDERED: METO25TA5 PO (14:24)
[2021-12-13] MEDS ORDERED: AMIO200T4 PO (14:24)
[2021-12-13 17:00] VITALS: BP 148/102
[2021-12-13 20:00] VITALS: BP 153/100
[2021-12-14] MEDS: MORPHINE SULFATE INJ 2 MG/ml SYRG IV PRN ×3 (00:55→07:09)
[2021-12-14 05:00] VITALS: BP 146/103
[2021-12-14 06:21] LABS: Potassium 3.7 mmol/L (3.5-5.1)
[2021-12-14 06:27] LABS: BUN/Creatinine Ratio 18.4; Calcium 8.5 mg/dL (8.5-10.1)
[2021-12-14] MEDS: ACCU-CHEK COMFORT CURVE STRIP VI SCH ×4 (06:42→22:09)
[2021-12-14] MEDS: BUDESONIDE (INHALATION) 180 MCG IH IN SCH ×2 (06:50→23:36)
[2021-12-14] MEDS: InsuLIN REG 1unit/0.01ml Soln (100units/ml) SC SCH ×4 (06:50→22:08)
[2021-12-14] MEDS: ALBUTEROL SULF HFA 90MCG INH 200DOSE IN PRN ×2 (06:51→23:36)
[2021-12-14 09:00] VITALS: BP 140/98
[2021-12-14] MEDS: NICOTINE 7MG/24HR TOPICAL PATCH TD SCH (09:43)
[2021-12-14] MEDS: DOXYCYCLINE 100MG/250ML 250 ML IV SCH ×2 (09:43→22:12)
[2021-12-14] MEDS: DexAMETHasone SOD PHOS 10MG/1ML VIAL INJ IV SCH (09:43)
[2021-12-14] MEDS: ZINC SULFATE 220mg CAP or TAB PO SCH (09:44)
[2021-12-14] MEDS: METOPROLOL TARTRATE 25 MG TAB PO SCH ×2 (09:44→22:11)
[2021-12-14] MEDS: amLODIPine BESYLATE 5 MG TAB PO SCH (09:44)
[2021-12-14] MEDS: AMIODARONE HCL 200 MG TAB PO SCH ×2 (09:44→22:11)
[2021-12-14] MEDS: ASCORBIC ACID 1,000 MG TAB PO SCH (09:45)
[2021-12-14] MEDS: ENOXAPARIN SOD 40 MG/0.4 ML SYRINGE SC SCH (09:45)
[2021-12-14] MEDS: CHOLECALCIFEROL (VITD3) 2,000 UNIT CAP/TAB PO SCH (09:45)
[2021-12-14] MEDS: FAMOTIDINE 20 MG TAB PO SCH (14:00)
[2021-12-14] MEDS ORDERED: ACETAMINOPHEN 325 MG TAB PO PRN (17:30)
[2021-12-14 22:00] VITALS: BP 138/93
[2021-12-15 04:57] VITALS: BP 138/65
[2021-12-15] MEDS: ACCU-CHEK COMFORT CURVE STRIP VI SCH ×4 (06:14→23:54)
[2021-12-15] MEDS: InsuLIN REG 1unit/0.01ml Soln (100units/ml) SC SCH ×4 (06:18→23:57)
[2021-12-15 09:00] VITALS: BP 124/77
[2021-12-15] MEDS: ALBUTEROL SULF HFA 90MCG INH 200DOSE IN PRN ×2 (09:30→23:40)
[2021-12-15] MEDS: BUDESONIDE (INHALATION) 180 MCG IH IN SCH ×2 (09:30→23:38)
[2021-12-15] MEDS: ASCORBIC ACID 1,000 MG TAB PO SCH (09:57)
[2021-12-15] MEDS: DexAMETHasone SOD PHOS 10MG/1ML VIAL INJ IV SCH (09:57)
[2021-12-15] MEDS: CHOLECALCIFEROL (VITD3) 2,000 UNIT CAP/TAB PO SCH (09:57)
[2021-12-15] MEDS: DOXYCYCLINE 100MG/250ML 250 ML IV SCH (09:57)
[2021-12-15] MEDS: NICOTINE 7MG/24HR TOPICAL PATCH TD SCH (09:58)
[2021-12-15] MEDS: ACETAMINOPHEN 500 MG TAB PO PRN (09:58)
[2021-12-15] MEDS: ENOXAPARIN SOD 40 MG/0.4 ML SYRINGE SC SCH (09:58)
[2021-12-15] MEDS: FAMOTIDINE 20 MG TAB PO SCH (09:59)
[2021-12-15] MEDS: ZINC SULFATE 220mg CAP or TAB PO SCH (09:59)
[2021-12-15] MEDS: AMIODARONE HCL 200 MG TAB PO SCH ×2 (09:59→21:43)
[2021-12-15] MEDS: METOPROLOL TARTRATE 25 MG TAB PO SCH ×2 (10:03→21:42)
[2021-12-15] MEDS: amLODIPine BESYLATE 5 MG TAB PO SCH (10:03)
[2021-12-15] MEDS ORDERED: METOCLOPRAMIDE HCL 5MG/ml INJ 2ml VIAL IV PRN (12:00)
[2021-12-15 13:00] VITALS: BP 130/94
[2021-12-15 17:00] VITALS: BP 135/87
[2021-12-15 22:00] VITALS: BP 137/80
[2021-12-15 23:59] VITALS: BP 137/80
[2021-12-16 05:00] VITALS: BP 145/96
[2021-12-16] MEDS: ACCU-CHEK COMFORT CURVE STRIP VI SCH ×2 (06:12→12:22)
[2021-12-16] MEDS: InsuLIN REG 1unit/0.01ml Soln (100units/ml) SC SCH ×2 (06:15→12:24)
[2021-12-16] MEDS: ALBUTEROL SULF HFA 90MCG INH 200DOSE IN PRN (06:53)
[2021-12-16] MEDS: BUDESONIDE (INHALATION) 180 MCG IH IN SCH (06:53)
[2021-12-16] MEDS: NICOTINE 7MG/24HR TOPICAL PATCH TD SCH (10:00)
[2021-12-16] MEDS: AMIODARONE HCL 200 MG TAB PO SCH (10:04)
[2021-12-16] MEDS: FAMOTIDINE 20 MG TAB PO SCH (10:04)
[2021-12-16] MEDS: amLODIPine BESYLATE 5 MG TAB PO SCH (10:05)
[2021-12-16] MEDS: CHOLECALCIFEROL (VITD3) 2,000 UNIT CAP/TAB PO SCH (10:05)
[2021-12-16] MEDS: METOPROLOL TARTRATE 25 MG TAB PO SCH (10:05)
[2021-12-16] MEDS: ENOXAPARIN SOD 40 MG/0.4 ML SYRINGE SC SCH (10:06)
[2021-12-16 13:00] VITALS: BP 146/88
[2021-12-16] MEDS: ACETAMINOPHEN 500 MG TAB PO PRN (13:06)
[2021-12-16 15:25] VITALS: BP 146/88
[2021-12-16 17:00] VITALS: BP 131/85
== END 2021-12-16 17:02 | disposition home health service (06) | DRG 469 ==
LOC: EDUNIT# 09:29 → ER 09:29 → EDBD 09:29 → TELE 14:03 → TELE-EAST 12-11 17:35
PROVIDERS: ADMIT Registered Nurse; ATTEND Hospitalist
DX: N17.9 Acute kidney failure, unspecified (principal); U07.1 COVID-19; E43 Unspecified severe protein-calorie malnutrition; E11.649 Type 2 diabetes mellitus with hypoglycemia without coma; I47.1 Supraventricular tachycardia; E87.2 Acidosis; E88.09 Other disorders of plasma-protein metabolism, not elsewhere classified; I13.0 Hypertensive heart and chronic kidney disease with heart failure and stage 1 through stage 4 chronic kidney disease, or unspecified chronic kidney disease; Z66 Do not resuscitate; I50.32 Chronic diastolic (congestive) heart failure; E11.22 Type 2 diabetes mellitus with diabetic chronic kidney disease; E78.5 Hyperlipidemia, unspecified; J44.9 Chronic obstructive pulmonary disease, unspecified; E87.6 Hypokalemia; F15.10 Other stimulant abuse, uncomplicated; N18.31 Chronic kidney disease, stage 3a; M12.9 Arthropathy, unspecified; R62.7 Adult failure to thrive; Z51.5 Encounter for palliative care; Z79.84 Long term (current) use of oral hypoglycemic drugs; Z85.841 Personal history of malignant neoplasm of brain; Z88.8 Allergy status to other drugs, medicaments and biological substances; Z68.25 Body mass index [BMI] 25.0-25.9, adult; Z90.49 Acquired absence of other specified parts of digestive tract; Z86.718 Personal history of other venous thrombosis and embolism; Z86.711 Personal history of pulmonary embolism; I25.2 Old myocardial infarction; Z72.0 Tobacco use; Z71.6 Tobacco abuse counseling
CPT/HCPCS: 36415; 71045; 76775; 80048; 80053; 80307; 81001; 82306; 82570; 82962; 83605; 83735; 83970; 84100; 84156; 84300; 84484; 85007; 85025; 85027; 86803; 87040; 87086; 87340; 93005; 94640; 96361; 96374; 96375; 97163; 99291; C9113; G0378; J1100; J1815; J2001; J2405; J3480; J3490; J7060

== ENCOUNTER 2021-12-23 19:31 | Emergency (ER) | payer MEDICAID ==
[~2021-12-23] VITALS: Ht 182.9 cm; Wt 80.0 kg
[~2021-12-23 19:31] MED LIST changes: +AMIO200T4 PO; +METO25TA5 PO
[2021-12-24 06:25] VITALS: BP 145/64
== END 2021-12-24 01:35 | disposition home or self-care (01) ==
LOC: ER 19:31 → EDBD 19:31 → ER 12-24 01:35
DX: N13.9 Obstructive and reflux uropathy, unspecified (principal); I13.0 Hypertensive heart and chronic kidney disease with heart failure and stage 1 through stage 4 chronic kidney disease, or unspecified chronic kidney disease; E11.22 Type 2 diabetes mellitus with diabetic chronic kidney disease; N18.9 Chronic kidney disease, unspecified; I50.9 Heart failure, unspecified; I25.2 Old myocardial infarction; J44.9 Chronic obstructive pulmonary disease, unspecified; E78.5 Hyperlipidemia, unspecified; F17.210 Nicotine dependence, cigarettes, uncomplicated; Z90.49 Acquired absence of other specified parts of digestive tract; Z79.82 Long term (current) use of aspirin; Z79.899 Other long term (current) drug therapy; Z88.8 Allergy status to other drugs, medicaments and biological substances
CPT/HCPCS: 74176

== ENCOUNTER 2022-02-27 19:47 | Emergency (ER) | payer MEDICAID ==
[~2022-02-27] VITALS: Ht 185.4 cm; Wt 78.1 kg
[~2022-02-27 19:47] MED LIST changes: +LEVO750T64 PO
[2022-02-27] MEDS ORDERED: SODIUM CHLORIDE 0.9% 1,000 ML IV ONE (20:30)
[2022-02-27 20:38] LABS: Basophils # (auto) 0.1 10 ^3/uL (0-0.2); Basophils % (auto) 0.9 % (0.0-2.0); Eosinophils # (auto) 0.5 10 ^3/uL (0-0.8); Eosinophils % (auto) 7.5 % (0.0-7.0); Hematocrit 36.6 % (41.0-53.0); Hemoglobin 12.1 g/dL (13.5-17.5); Lymphocytes # (auto) 1.6 10 ^3/uL (0.4-5.4); Lymphocytes % (auto) 23.7 % (10.0-50.0); Mean Corpuscular Hemoglobin 29.1 pg (28.0-32.0); Mean Corpuscular Hgb Conc. 33.1 g/dL (32.0-36.0); Monocytes # (auto) 0.6 10 ^3/uL (0-1.3); Monocytes % (auto) 8.7 % (0.0-12.0); Neutrophils # (auto) 3.9 10 ^3/uL (1.6-8.6); Neutrophils % (auto) 59.2 % (37.0-80.0); Nucleated Red Blood Cells % 0.1 %; Red Blood Cells 4.17 10^6/uL (4.5-5.90); Red Cell Distribution Width 15.2 % (11.8-14.3); White Blood Cell 6.7 10^3/uL (4.4-10.8)
[2022-02-27 20:56] LABS: Anion Gap 9 (5-15); BUN/Creatinine Ratio 14.7; Blood Alcohol < 3.0 mg/dL (0-5); Blood Urea Nitrogen 34 mg/dL (7-18); Carbon Dioxide 29 mmol/L (21-32); Chloride 103 mmol/L (98-107); GFR African American 37 mL/min; GFR Non-African American 31 mL/min; Glucose 139 mg/dL (74-106); Magnesium 2.5 mg/dL (1.6-2.6); Potassium 3.3 mmol/L (3.5-5.1); Sodium 141 mmol/L (136-145)
[2022-02-27 21:05] LABS: Alanine Aminotransferase 19 U/L (16-61); Alkaline Phosphatase 108 U/L (45-117); Aspartate Aminotransferase 24 U/L (15-37); Bilirubin, Total 0.2 mg/dL (0.2-1.0); Total Protein 6.4 g/dL (6.4-8.2)
[2022-02-27 22:00] VITALS: BP 130/80
[2022-02-28] MEDS ORDERED: POTASSIUM CHL 20 Meq TABLET PO ONE
[2022-02-28] MEDS ORDERED: ONDANSETRON HCL 4 MG/2 ML VIAL IV PRN
[2022-02-28] MEDS ORDERED: HYDROcodone-ACET 5/325MG TAB PO PRN
[2022-02-28] MEDS ORDERED: DOCUSATE SOD 100 MG CAP PO PRN
[2022-02-28] MEDS ORDERED: ACETAMINOPHEN 325 MG TAB PO PRN
[2022-02-28] MEDS ORDERED: SODIUM CHLOR 0.9% PF (SALINE LOCK) 10ML VIAL/SYR IV SCH (06:00)
[2022-02-28] MEDS ORDERED: ASPirin 81 mg TAB PO SCH (10:00)
[2022-02-28] MEDS ORDERED: FAMOTIDINE (10MG/ML) 2ML VL IV SCH (10:00)
[2022-02-28] MEDS ORDERED: ATORVASTATIN 20 MG TAB PO SCH (22:00)
== END 2022-02-28 00:15 | disposition left against medical advice (07) ==
LOC: EDBD 19:47 → ER 19:47
DX: I95.9 Hypotension, unspecified (principal); R55 Syncope and collapse; R53.1 Weakness; I11.0 Hypertensive heart disease with heart failure; I50.9 Heart failure, unspecified; I13.0 Hypertensive heart and chronic kidney disease with heart failure and stage 1 through stage 4 chronic kidney disease, or unspecified chronic kidney disease; N18.9 Chronic kidney disease, unspecified; J44.9 Chronic obstructive pulmonary disease, unspecified; E78.5 Hyperlipidemia, unspecified; F17.210 Nicotine dependence, cigarettes, uncomplicated; Z90.49 Acquired absence of other specified parts of digestive tract; Z88.8 Allergy status to other drugs, medicaments and biological substances; Z79.899 Other long term (current) drug therapy
CPT/HCPCS: 36415; 70450; 71045; 80053; 80320; 83735; 84484; 85025; 93005; 96360; 96361; 99285; J7030

== ENCOUNTER 2022-05-06 11:30 | Inpatient (IN) | payer MEDICAID ==
[~2022-05-06] VITALS: Ht 172.7 cm; Wt 92.0 kg
[2022-05-06] MEDS ORDERED: KETOROLAC TROMETH 60MG/2ML VIAL IM ONE (13:30)
[2022-05-06] MEDS ORDERED: HYDROcodone-ACET 5/325MG TAB PO ONE (13:30)
[2022-05-06] MEDS: NEOMYCIN-BACITRACIN-POLYM 15GM TOP OINT TOP SCH ×2 (13:39→22:00)
[2022-05-06] MEDS ORDERED: NYSTATIN TOPICAL CREAM 15GM TOP ONE (16:00)
[2022-05-06 16:30] LABS: Basophils # (auto) 0.2 10 ^3/uL (0-0.2); Basophils % (auto) 2.4 % (0.0-2.0); Eosinophils # (auto) 0.4 10 ^3/uL (0-0.8); Eosinophils % (auto) 6.4 % (0.0-7.0); Hematocrit 41.5 % (41.0-53.0); Hemoglobin 14.1 g/dL (13.5-17.5); Lymphocytes # (auto) 1.3 10 ^3/uL (0.4-5.4); Lymphocytes % (auto) 19.8 % (10.0-50.0); Mean Corpuscular Hemoglobin 29.5 pg (28.0-32.0); Mean Corpuscular Volume 86.6 fL (80.0-100.0); Monocytes # (auto) 0.4 10 ^3/uL (0-1.3); Monocytes % (auto) 6.3 % (0.0-12.0); Neutrophils # (auto) 4.2 10 ^3/uL (1.6-8.6); Neutrophils % (auto) 65.1 % (37.0-80.0); Nucleated Red Blood Cells % 0.2 %; Red Blood Cells 4.79 10^6/uL (4.5-5.90); Red Cell Distribution Width 14.8 % (11.8-14.3); White Blood Cell 6.5 10^3/uL (4.4-10.8)
[2022-05-06 16:57] LABS: Albumin 3.1 g/dL (3.4-5.0); BUN/Creatinine Ratio 11.8; Calcium 8.8 mg/dL (8.5-10.1)
[2022-05-06 17:00] LABS: Bilirubin, Total 0.5 mg/dL (0.2-1.0); Total Protein 7.2 g/dL (6.4-8.2)
[2022-05-06] MEDS ORDERED: KETOROLAC TROMETH 30 MG/ML 1ML VIAL IV PRN (18:00)
[2022-05-06] MEDS ORDERED: POTASSIUM EFFERVESENT TAB 25 MEQ PO ONE (18:00)
[2022-05-06] MEDS ORDERED: DEXTROSE (50%) 50ML SYRG IV PRN (18:00)
[2022-05-06] MEDS ORDERED: ACETAMINOPHEN 325 MG TAB PO PRN (18:00)
[2022-05-06] MEDS ORDERED: PANTOPRAZOLE 40 MG/10 ML VIAL INJ IV ONE (18:00)
[2022-05-06 19:19] LABS: INR 1.09 (0.9-1.15)
[2022-05-06] MEDS: ACCU-CHEK COMFORT CURVE STRIP VI SCH (22:00)
[2022-05-06] MEDS: ASCORBIC ACID 500 MG TAB PO SCH (22:00)
[2022-05-07] MEDS: SODIUM CHLORIDE 0.9% 1,000 ML IV SCH ×3 (00:26→18:13)
[2022-05-07] MEDS: hydrALAZINE HCL 25 MG TAB PO SCH ×4 (00:27→17:20)
[2022-05-07] MEDS: AMIODARONE HCL 200 MG TAB PO SCH ×3 (00:28→22:00)
[2022-05-07] MEDS: cloNIDine HCL 0.1 MG TAB PO SCH ×4 (00:28→22:00)
[2022-05-07] MEDS: ATORVASTATIN 20 MG TAB PO SCH ×2 (00:29→22:00)
[2022-05-07] MEDS: METOPROLOL TARTRATE 25 MG TAB PO SCH ×3 (00:29→22:00)
[2022-05-07] MEDS: NEOMYCIN-BACITRACIN-POLYM 15GM TOP OINT TOP SCH ×5 (00:30→22:00)
[2022-05-07] MEDS: InsuLIN REG 1unit/0.01ml Soln (100units/ml) SC SCH ×5 (01:10→22:00)
[2022-05-07] MEDS: ACCU-CHEK COMFORT CURVE STRIP VI SCH ×4 (06:33→22:00)
[2022-05-07 07:23] LABS: Albumin 2.5 g/dL (3.4-5.0); Calcium 8.2 mg/dL (8.5-10.1); Potassium 3.7 mmol/L (3.5-5.1)
[2022-05-07 07:27] LABS: BUN/Creatinine Ratio 14.1; Bilirubin, Total 0.4 mg/dL (0.2-1.0); Total Protein 5.4 g/dL (6.4-8.2)
[2022-05-07 07:41] LABS: Basophils # (auto) 0.1 10 ^3/uL (0-0.2); Basophils % (auto) 2.3 % (0.0-2.0); Eosinophils # (auto) 0.3 10 ^3/uL (0-0.8); Eosinophils % (auto) 6.1 % (0.0-7.0); Hematocrit 35.5 % (41.0-53.0); Hemoglobin 12.2 g/dL (13.5-17.5); Lymphocytes # (auto) 1.3 10 ^3/uL (0.4-5.4); Lymphocytes % (auto) 28.8 % (10.0-50.0); Mean Corpuscular Hemoglobin 29.5 pg (28.0-32.0); Mean Corpuscular Hgb Conc. 34.3 g/dL (32.0-36.0); Mean Corpuscular Volume 86.1 fL (80.0-100.0); Monocytes # (auto) 0.4 10 ^3/uL (0-1.3); Monocytes % (auto) 8.1 % (0.0-12.0); Neutrophils # (auto) 2.6 10 ^3/uL (1.6-8.6); Neutrophils % (auto) 54.7 % (37.0-80.0); Nucleated Red Blood Cells % 0.2 %; Red Blood Cells 4.12 10^6/uL (4.5-5.90); Red Cell Distribution Width 14.7 % (11.8-14.3); White Blood Cell 4.7 10^3/uL (4.4-10.8)
[2022-05-07] MEDS: amLODIPine BESYLATE 5 MG TAB PO SCH (10:00)
[2022-05-07 10:57] LABS: Protein, Urine 309.2 mg/dL (0.0-11.9)
[2022-05-07] MEDS: PANTOPRAZOLE 40 MG/10 ML VIAL INJ IV SCH (11:08)
[2022-05-07] MEDS: ENOXAPARIN SOD 40 MG/0.4 ML SYRINGE SC SCH (11:08)
[2022-05-07] MEDS: ASCORBIC ACID 500 MG TAB PO SCH ×2 (11:08→22:00)
[2022-05-07] MEDS: MULTIPLE VITAMIN TAB PO SCH (11:09)
[2022-05-07] MEDS: ZINC SULFATE 220mg CAP or TAB PO SCH (11:09)
[2022-05-07] MEDS: ASPirin 81 mg TAB PO SCH (11:09)
[2022-05-07] MEDS: DOXAZOSIN MESYL 2 MG TAB PO SCH (11:10)
[2022-05-07 11:35] LABS: Urine Bacteria FEW /hpf (None Seen); Urine Blood 3+ /uL (Negative); Urine Hyaline Cast FEW /lpf (0 - 2); Urine Mucus FEW (None Seen); Urine WBC 1219 /hpf (0 - 3); Urine WBC Clumps PRESENT /hpf (None Seen)
[2022-05-07 16:59] VITALS: BP 106/76
[2022-05-07] MEDS: NYSTATIN TOPICAL POWDER 15GM TOP SCH (22:00)
[2022-05-08 05:00] VITALS: BP 141/87
[2022-05-08] MEDS: cloNIDine HCL 0.1 MG TAB PO SCH ×4 (05:46→22:00)
[2022-05-08] MEDS: NEOMYCIN-BACITRACIN-POLYM 15GM TOP OINT TOP SCH ×3 (05:57→22:00)
[2022-05-08] MEDS: InsuLIN REG 1unit/0.01ml Soln (100units/ml) SC SCH ×4 (06:19→22:00)
[2022-05-08] MEDS: ACCU-CHEK COMFORT CURVE STRIP VI SCH ×3 (06:31→16:36)
[2022-05-08] MEDS: SODIUM CHLORIDE 0.9% 1,000 ML IV SCH ×2 (07:30→20:00)
[2022-05-08] MEDS: hydrALAZINE HCL 25 MG TAB PO SCH ×3 (08:00→16:37)
[2022-05-08 09:00] VITALS: BP 135/83
[2022-05-08] MEDS: ASPirin 81 mg TAB PO SCH (10:00)
[2022-05-08] MEDS: amLODIPine BESYLATE 5 MG TAB PO SCH (10:00)
[2022-05-08] MEDS: ZINC SULFATE 220mg CAP or TAB PO SCH (10:00)
[2022-05-08] MEDS: METOPROLOL TARTRATE 25 MG TAB PO SCH ×2 (10:00→22:00)
[2022-05-08] MEDS: ENOXAPARIN SOD 40 MG/0.4 ML SYRINGE SC SCH (10:00)
[2022-05-08] MEDS: DOXAZOSIN MESYL 2 MG TAB PO SCH (10:00)
[2022-05-08] MEDS: PANTOPRAZOLE 40 MG/10 ML VIAL INJ IV SCH (10:00)
[2022-05-08] MEDS: MULTIPLE VITAMIN TAB PO SCH (10:00)
[2022-05-08] MEDS: AMIODARONE HCL 200 MG TAB PO SCH ×2 (10:00→22:00)
[2022-05-08] MEDS: ASCORBIC ACID 500 MG TAB PO SCH ×2 (10:00→22:00)
[2022-05-08] MEDS: NYSTATIN TOPICAL POWDER 15GM TOP SCH (10:24)
[2022-05-08 13:00] VITALS: BP 143/82
[2022-05-08] MEDS ORDERED: FLUCONAZOLE 100 MG TAB PO ONE (16:30)
[2022-05-08 17:00] VITALS: BP 163/115
[2022-05-08 22:00] VITALS: BP 137/95
[2022-05-08] MEDS ORDERED: MORPHINE SULFATE INJ 2 MG/ml SYRG IV PRN (22:00)
[2022-05-08] MEDS: ATORVASTATIN 20 MG TAB PO SCH (22:00)
[2022-05-08] MEDS ORDERED: MORPHINE SULFATE INJ 2 MG/ml SYRG IV ONE (22:13)
[2022-05-09] MEDS: ACCU-CHEK COMFORT CURVE STRIP VI SCH ×5 (01:19→22:00)
[2022-05-09] MEDS: NYSTATIN TOPICAL POWDER 15GM TOP SCH ×3 (01:20→22:00)
[2022-05-09 05:00] VITALS: BP 149/96
[2022-05-09] MEDS: cloNIDine HCL 0.1 MG TAB PO SCH ×3 (06:00→21:23)
[2022-05-09] MEDS: NEOMYCIN-BACITRACIN-POLYM 15GM TOP OINT TOP SCH ×3 (06:00→22:00)
[2022-05-09] MEDS: InsuLIN REG 1unit/0.01ml Soln (100units/ml) SC SCH ×4 (06:15→22:00)
[2022-05-09] MEDS: hydrALAZINE HCL 25 MG TAB PO SCH ×3 (08:00→18:00)
[2022-05-09] MEDS: SODIUM CHLORIDE 0.9% 1,000 ML IV SCH ×2 (08:30→21:00)
[2022-05-09] MEDS: ASPirin 81 mg TAB PO SCH (09:29)
[2022-05-09] MEDS: ZINC SULFATE 220mg CAP or TAB PO SCH (09:29)
[2022-05-09] MEDS: PANTOPRAZOLE 40 MG/10 ML VIAL INJ IV SCH (09:29)
[2022-05-09] MEDS: DOXAZOSIN MESYL 2 MG TAB PO SCH (09:30)
[2022-05-09] MEDS: AMIODARONE HCL 200 MG TAB PO SCH ×2 (09:30→22:00)
[2022-05-09] MEDS: MULTIPLE VITAMIN TAB PO SCH (09:31)
[2022-05-09] MEDS: METOPROLOL TARTRATE 25 MG TAB PO SCH ×2 (09:31→22:00)
[2022-05-09] MEDS: amLODIPine BESYLATE 5 MG TAB PO SCH (09:31)
[2022-05-09] MEDS: ASCORBIC ACID 500 MG TAB PO SCH ×2 (09:31→22:00)
[2022-05-09] MEDS: ENOXAPARIN SOD 40 MG/0.4 ML SYRINGE SC SCH (09:32)
[2022-05-09 13:00] VITALS: BP 158/92
[2022-05-09] MEDS: ATORVASTATIN 20 MG TAB PO SCH (22:00)
[2022-05-10] VITALS (8 sets, daily range): BP systolic 126–167; BP diastolic 80–113
[2022-05-10] MEDS: NEOMYCIN-BACITRACIN-POLYM 15GM TOP OINT TOP SCH ×3 (06:00→22:00)
[2022-05-10] MEDS: cloNIDine HCL 0.1 MG TAB PO SCH ×3 (06:00→22:00)
[2022-05-10] MEDS: InsuLIN REG 1unit/0.01ml Soln (100units/ml) SC SCH ×4 (06:26→22:17)
[2022-05-10] MEDS: ACCU-CHEK COMFORT CURVE STRIP VI SCH ×4 (06:26→22:05)
[2022-05-10] MEDS: hydrALAZINE HCL 25 MG TAB PO SCH ×3 (08:00→17:50)
[2022-05-10] MEDS: SODIUM CHLORIDE 0.9% 1,000 ML IV SCH ×2 (09:30→22:00)
[2022-05-10] MEDS: METOPROLOL TARTRATE 25 MG TAB PO SCH ×2 (09:34→22:00)
[2022-05-10] MEDS: PANTOPRAZOLE 40 MG/10 ML VIAL INJ IV SCH (09:34)
[2022-05-10] MEDS: ASPirin 81 mg TAB PO SCH (09:34)
[2022-05-10] MEDS: AMIODARONE HCL 200 MG TAB PO SCH ×2 (09:34→22:19)
[2022-05-10] MEDS: ZINC SULFATE 220mg CAP or TAB PO SCH (09:34)
[2022-05-10] MEDS: DOXAZOSIN MESYL 2 MG TAB PO SCH (09:34)
[2022-05-10] MEDS: ASCORBIC ACID 500 MG TAB PO SCH ×2 (09:35→22:00)
[2022-05-10] MEDS: MULTIPLE VITAMIN TAB PO SCH (09:35)
[2022-05-10] MEDS: amLODIPine BESYLATE 5 MG TAB PO SCH (09:35)
[2022-05-10] MEDS: ENOXAPARIN SOD 40 MG/0.4 ML SYRINGE SC SCH (09:36)
[2022-05-10] MEDS: NYSTATIN TOPICAL POWDER 15GM TOP SCH ×2 (09:36→22:19)
[2022-05-10] MEDS: HYDROcodone-ACET 5/325MG TAB PO PRN ×2 (13:11→18:02)
[2022-05-10] MEDS: ATORVASTATIN 20 MG TAB PO SCH (22:19)
[2022-05-11 05:00] VITALS: BP 127/81
[2022-05-11] MEDS: cloNIDine HCL 0.1 MG TAB PO SCH ×3 (06:00→22:00)
[2022-05-11] MEDS: NEOMYCIN-BACITRACIN-POLYM 15GM TOP OINT TOP SCH ×3 (06:00→22:00)
[2022-05-11] MEDS: HYDROcodone-ACET 5/325MG TAB PO PRN ×3 (06:49→22:32)
[2022-05-11] MEDS: InsuLIN REG 1unit/0.01ml Soln (100units/ml) SC SCH ×4 (06:49→22:00)
[2022-05-11] MEDS: ACCU-CHEK COMFORT CURVE STRIP VI SCH ×4 (06:49→22:00)
[2022-05-11] MEDS: hydrALAZINE HCL 25 MG TAB PO SCH ×3 (08:00→18:37)
[2022-05-11] MEDS: PANTOPRAZOLE 40 MG/10 ML VIAL INJ IV SCH (09:50)
[2022-05-11] MEDS: METOPROLOL TARTRATE 25 MG TAB PO SCH ×2 (09:51→22:00)
[2022-05-11] MEDS: MULTIPLE VITAMIN TAB PO SCH (09:51)
[2022-05-11] MEDS: ASCORBIC ACID 500 MG TAB PO SCH ×2 (09:51→22:32)
[2022-05-11] MEDS: AMIODARONE HCL 200 MG TAB PO SCH ×2 (09:51→22:32)
[2022-05-11] MEDS: ZINC SULFATE 220mg CAP or TAB PO SCH (09:51)
[2022-05-11] MEDS: DOXAZOSIN MESYL 2 MG TAB PO SCH (09:51)
[2022-05-11] MEDS: amLODIPine BESYLATE 5 MG TAB PO SCH (09:51)
[2022-05-11] MEDS: ENOXAPARIN SOD 40 MG/0.4 ML SYRINGE SC SCH (09:51)
[2022-05-11] MEDS: ASPirin 81 mg TAB PO SCH (09:51)
[2022-05-11] MEDS: NYSTATIN TOPICAL POWDER 15GM TOP SCH ×2 (09:52→22:00)
[2022-05-11] MEDS: SODIUM CHLORIDE 0.9% 1,000 ML IV SCH ×2 (09:52→22:56)
[2022-05-11 13:00] VITALS: BP 159/99
[2022-05-11] MEDS ORDERED: LACTULOSE 20Gm/30ML SOLN PO ONE (14:15)
[2022-05-11] MEDS ORDERED: LACTULOSE 20Gm/30ML SOLN PO PRN (14:15)
[2022-05-11 17:00] VITALS: BP 147/90
[2022-05-11 22:00] VITALS: BP 143/87
[2022-05-11] MEDS: ATORVASTATIN 20 MG TAB PO SCH (22:32)
[2022-05-12] MEDS: cloNIDine HCL 0.1 MG TAB PO SCH ×3 (05:59→22:00)
[2022-05-12] MEDS: NEOMYCIN-BACITRACIN-POLYM 15GM TOP OINT TOP SCH ×3 (05:59→22:00)
[2022-05-12] MEDS: InsuLIN REG 1unit/0.01ml Soln (100units/ml) SC SCH ×4 (06:09→21:02)
[2022-05-12] MEDS: ACCU-CHEK COMFORT CURVE STRIP VI SCH ×4 (06:09→21:02)
[2022-05-12] MEDS: hydrALAZINE HCL 25 MG TAB PO SCH ×3 (09:55→17:38)
[2022-05-12] MEDS: PANTOPRAZOLE 40 MG/10 ML VIAL INJ IV SCH (10:00)
[2022-05-12] MEDS: MULTIPLE VITAMIN TAB PO SCH (10:00)
[2022-05-12] MEDS: ZINC SULFATE 220mg CAP or TAB PO SCH (10:00)
[2022-05-12] MEDS: ASCORBIC ACID 500 MG TAB PO SCH ×2 (10:00→22:00)
[2022-05-12] MEDS: ENOXAPARIN SOD 40 MG/0.4 ML SYRINGE SC SCH (10:00)
[2022-05-12] MEDS: amLODIPine BESYLATE 5 MG TAB PO SCH (10:00)
[2022-05-12] MEDS: AMIODARONE HCL 200 MG TAB PO SCH ×2 (10:00→22:00)
[2022-05-12] MEDS: ASPirin 81 mg TAB PO SCH (10:00)
[2022-05-12] MEDS: DOXAZOSIN MESYL 2 MG TAB PO SCH (10:00)
[2022-05-12] MEDS: METOPROLOL TARTRATE 25 MG TAB PO SCH ×2 (10:00→22:00)
[2022-05-12] MEDS: NYSTATIN TOPICAL POWDER 15GM TOP SCH ×2 (10:00→22:00)
[2022-05-12] MEDS: SODIUM CHLORIDE 0.9% 1,000 ML IV SCH (11:30)
[2022-05-12] MEDS ORDERED: ONDANSETRON HCL 4 MG/2 ML VIAL IV PRN (14:00)
[2022-05-12 17:00] VITALS: BP 157/100
[2022-05-12] MEDS: HYDROcodone-ACET 5/325MG TAB PO PRN (21:01)
[2022-05-12 22:00] VITALS: BP 146/90
[2022-05-12] MEDS: ATORVASTATIN 20 MG TAB PO SCH (22:00)
[2022-05-13] MEDS: cloNIDine HCL 0.1 MG TAB PO SCH ×3 (06:00→21:46)
[2022-05-13] MEDS: InsuLIN REG 1unit/0.01ml Soln (100units/ml) SC SCH ×4 (07:00→21:04)
[2022-05-13] MEDS: ACCU-CHEK COMFORT CURVE STRIP VI SCH ×4 (07:00→21:04)
[2022-05-13] MEDS: NEOMYCIN-BACITRACIN-POLYM 15GM TOP OINT TOP SCH ×3 (07:00→21:49)
[2022-05-13 08:00] VITALS: BP 161/91
[2022-05-13] MEDS: hydrALAZINE HCL 25 MG TAB PO SCH ×3 (08:47→18:00)
[2022-05-13] MEDS: HYDROcodone-ACET 5/325MG TAB PO PRN ×2 (08:48→21:46)
[2022-05-13 09:48] VITALS: BP 161/91
[2022-05-13] MEDS: NYSTATIN TOPICAL POWDER 15GM TOP SCH ×2 (10:00→21:48)
[2022-05-13] MEDS: METOPROLOL TARTRATE 25 MG TAB PO SCH ×2 (10:00→21:48)
[2022-05-13] MEDS: ASCORBIC ACID 500 MG TAB PO SCH ×2 (10:00→21:45)
[2022-05-13] MEDS: ASPirin 81 mg TAB PO SCH (10:00)
[2022-05-13] MEDS: AMIODARONE HCL 200 MG TAB PO SCH ×2 (10:00→21:45)
[2022-05-13] MEDS: amLODIPine BESYLATE 5 MG TAB PO SCH (10:00)
[2022-05-13] MEDS: ZINC SULFATE 220mg CAP or TAB PO SCH (10:00)
[2022-05-13] MEDS: DOXAZOSIN MESYL 2 MG TAB PO SCH (10:00)
[2022-05-13] MEDS: ENOXAPARIN SOD 40 MG/0.4 ML SYRINGE SC SCH (10:00)
[2022-05-13] MEDS: MULTIPLE VITAMIN TAB PO SCH (10:00)
[2022-05-13] MEDS: PANTOPRAZOLE 40 MG/10 ML VIAL INJ IV SCH (10:00)
[2022-05-13] MEDS: SODIUM CHLORIDE 0.9% 1,000 ML IV SCH ×2 (12:30)
[2022-05-13] MEDS ORDERED: NYS15PW TOP (12:53)
[2022-05-13 13:27] VITALS: BP 128/89
[2022-05-13] MEDS ORDERED: NYSTOIN TOP (14:57)
[2022-05-13 15:11] LABS: Calcium 8.3 mg/dL (8.5-10.1); Magnesium 2.2 mg/dL (1.6-2.6); Potassium 3.9 mmol/L (3.5-5.1)
[2022-05-13 16:11] LABS: Basophils # (auto) 0.1 10 ^3/uL (0-0.2); Basophils % (auto) 2.3 % (0.0-2.0); Eosinophils # (auto) 0.5 10 ^3/uL (0-0.8); Hematocrit 36.1 % (41.0-53.0); Lymphocytes # (auto) 1.5 10 ^3/uL (0.4-5.4); Lymphocytes % (auto) 25.1 % (10.0-50.0); Mean Corpuscular Hemoglobin 29.1 pg (28.0-32.0); Mean Corpuscular Hgb Conc. 33.2 g/dL (32.0-36.0); Mean Corpuscular Volume 87.5 fL (80.0-100.0); Monocytes # (auto) 0.5 10 ^3/uL (0-1.3); Monocytes % (auto) 9.2 % (0.0-12.0); Neutrophils # (auto) 3.3 10 ^3/uL (1.6-8.6); Neutrophils % (auto) 55.4 % (37.0-80.0); Red Blood Cells 4.13 10^6/uL (4.5-5.90); Red Cell Distribution Width 15.6 % (11.8-14.3); White Blood Cell 5.9 10^3/uL (4.4-10.8)
[2022-05-13] MEDS: ATORVASTATIN 20 MG TAB PO SCH (21:45)
[2022-05-14] MEDS: cloNIDine HCL 0.1 MG TAB PO SCH ×3 (05:57→22:08)
[2022-05-14] MEDS: InsuLIN REG 1unit/0.01ml Soln (100units/ml) SC SCH ×4 (05:58→22:00)
[2022-05-14] MEDS: NEOMYCIN-BACITRACIN-POLYM 15GM TOP OINT TOP SCH ×3 (05:58→22:00)
[2022-05-14] MEDS: ACCU-CHEK COMFORT CURVE STRIP VI SCH ×4 (05:58→22:00)
[2022-05-14 09:00] VITALS: BP 164/99
[2022-05-14] MEDS: hydrALAZINE HCL 25 MG TAB PO SCH ×3 (09:33→17:33)
[2022-05-14] MEDS: AMIODARONE HCL 200 MG TAB PO SCH ×2 (09:34→22:08)
[2022-05-14] MEDS: ASPirin 81 mg TAB PO SCH (09:34)
[2022-05-14] MEDS: amLODIPine BESYLATE 5 MG TAB PO SCH (09:36)
[2022-05-14] MEDS: HYDROcodone-ACET 5/325MG TAB PO PRN ×2 (09:36→20:53)
[2022-05-14] MEDS: METOPROLOL TARTRATE 25 MG TAB PO SCH ×2 (09:38→22:09)
[2022-05-14] MEDS: MULTIPLE VITAMIN TAB PO SCH (09:46)
[2022-05-14] MEDS: PANTOPRAZOLE 40 MG/10 ML VIAL INJ IV SCH (09:46)
[2022-05-14] MEDS: SODIUM CHLORIDE 0.9% 1,000 ML IV SCH ×2 (09:46→13:30)
[2022-05-14] MEDS: ZINC SULFATE 220mg CAP or TAB PO SCH (09:46)
[2022-05-14] MEDS: DOXAZOSIN MESYL 2 MG TAB PO SCH (09:46)
[2022-05-14] MEDS: ASCORBIC ACID 500 MG TAB PO SCH ×2 (09:46→22:00)
[2022-05-14] MEDS: NYSTATIN TOPICAL POWDER 15GM TOP SCH ×2 (09:47→22:00)
[2022-05-14] MEDS: ENOXAPARIN SOD 40 MG/0.4 ML SYRINGE SC SCH (09:47)
[2022-05-14] MEDS: ATORVASTATIN 20 MG TAB PO SCH (22:00)
[2022-05-15] MEDS: NEOMYCIN-BACITRACIN-POLYM 15GM TOP OINT TOP SCH ×2 (06:00→13:42)
[2022-05-15] MEDS: cloNIDine HCL 0.1 MG TAB PO SCH ×2 (06:00→13:42)
[2022-05-15] MEDS: InsuLIN REG 1unit/0.01ml Soln (100units/ml) SC SCH ×3 (06:53→17:00)
[2022-05-15] MEDS: ACCU-CHEK COMFORT CURVE STRIP VI SCH ×3 (06:54→17:00)
[2022-05-15] MEDS: hydrALAZINE HCL 25 MG TAB PO SCH ×2 (08:46→11:33)
[2022-05-15] MEDS: SODIUM CHLORIDE 0.9% 1,000 ML IV SCH ×2 (08:46→14:30)
[2022-05-15] MEDS: MULTIPLE VITAMIN TAB PO SCH (10:00)
[2022-05-15] MEDS: ENOXAPARIN SOD 40 MG/0.4 ML SYRINGE SC SCH (10:00)
[2022-05-15] MEDS: METOPROLOL TARTRATE 25 MG TAB PO SCH (10:00)
[2022-05-15] MEDS: amLODIPine BESYLATE 5 MG TAB PO SCH (10:00)
[2022-05-15] MEDS: NYSTATIN TOPICAL POWDER 15GM TOP SCH (10:00)
[2022-05-15] MEDS: ASCORBIC ACID 500 MG TAB PO SCH (10:00)
[2022-05-15] MEDS: ZINC SULFATE 220mg CAP or TAB PO SCH (10:00)
[2022-05-15] MEDS: PANTOPRAZOLE 40 MG/10 ML VIAL INJ IV SCH (10:00)
[2022-05-15] MEDS: AMIODARONE HCL 200 MG TAB PO SCH (10:00)
[2022-05-15] MEDS: DOXAZOSIN MESYL 2 MG TAB PO SCH (10:00)
[2022-05-15] MEDS: ASPirin 81 mg TAB PO SCH (10:00)
[2022-05-15 13:00] VITALS: BP 146/83
[2022-05-15] MEDS: HYDROcodone-ACET 5/325MG TAB PO PRN (16:23)
== END 2022-05-15 18:48 | disposition home health service (06) | DRG 385 ==
LOC: ER 11:30 → EDBD 11:30 → OVERFLOW 17:59 → EAST 05-07 16:32
PROVIDERS: ADMIT Nurse Practitioner Family; ATTEND Internal Medicine
DX: B37.2 Candidiasis of skin and nail (principal); N17.0 Acute kidney failure with tubular necrosis; N39.0 Urinary tract infection, site not specified; I13.0 Hypertensive heart and chronic kidney disease with heart failure and stage 1 through stage 4 chronic kidney disease, or unspecified chronic kidney disease; E88.09 Other disorders of plasma-protein metabolism, not elsewhere classified; I50.32 Chronic diastolic (congestive) heart failure; E11.22 Type 2 diabetes mellitus with diabetic chronic kidney disease; N18.4 Chronic kidney disease, stage 4 (severe); Z20.822 Contact with and (suspected) exposure to COVID-19; E11.65 Type 2 diabetes mellitus with hyperglycemia; F17.210 Nicotine dependence, cigarettes, uncomplicated; E78.5 Hyperlipidemia, unspecified; E87.6 Hypokalemia; J44.9 Chronic obstructive pulmonary disease, unspecified; Z91.199 Patient's noncompliance with other medical treatment and regimen due to unspecified reason; Z91.14 Patient's other noncompliance with medication regimen; Z88.8 Allergy status to other drugs, medicaments and biological substances; Z68.21 Body mass index [BMI] 21.0-21.9, adult; Z90.49 Acquired absence of other specified parts of digestive tract; Z80.9 Family history of malignant neoplasm, unspecified; Z82.49 Family history of ischemic heart disease and other diseases of the circulatory system
CPT/HCPCS: 36415; 76775; 80048; 80053; 81001; 82306; 82570; 82962; 83036; 83735; 83970; 84100; 84132; 84156; 84300; 85025; 85610; 87086; 87426; 96372; 97110; 97116; 97163; 97530; C9113; G0378; J1815; J1885

== ENCOUNTER 2022-05-20 17:35 | Inpatient (IN) | payer MEDICAID ==
[~2022-05-20] VITALS: Ht 182.9 cm; Wt 74.1 kg
[~2022-05-20 17:35] MED LIST changes: -LEVO750T64 PO; +NYS15PW TOP; +NYSTOIN TOP
[2022-05-20 18:33] LABS: Basophils # (auto) 0.2 10 ^3/uL (0-0.2); Basophils % (auto) 2.8 % (0.0-2.0); Eosinophils # (auto) 0.4 10 ^3/uL (0-0.8); Eosinophils % (auto) 5.7 % (0.0-7.0); Hematocrit 40.8 % (41.0-53.0); Hemoglobin 14.1 g/dL (13.5-17.5); Lymphocytes # (auto) 1.5 10 ^3/uL (0.4-5.4); Lymphocytes % (auto) 18.9 % (10.0-50.0); Mean Corpuscular Hgb Conc. 34.5 g/dL (32.0-36.0); Mean Corpuscular Volume 86.9 fL (80.0-100.0); Monocytes # (auto) 0.5 10 ^3/uL (0-1.3); Monocytes % (auto) 6.2 % (0.0-12.0); Neutrophils # (auto) 5.1 10 ^3/uL (1.6-8.6); Neutrophils % (auto) 66.4 % (37.0-80.0); Nucleated Red Blood Cells % 0.1 %; Red Cell Distribution Width 15.5 % (11.8-14.3); White Blood Cell 7.7 10^3/uL (4.4-10.8)
[2022-05-20 18:48] LABS: Albumin 3.4 g/dL (3.4-5.0); Calcium 8.6 mg/dL (8.5-10.1); Potassium 3.6 mmol/L (3.5-5.1)
[2022-05-20 18:53] LABS: BUN/Creatinine Ratio 15.3; Bilirubin, Total 0.4 mg/dL (0.2-1.0); Total Protein 6.8 g/dL (6.4-8.2)
[2022-05-21] MEDS ORDERED: LABETALOL HCL 5 MG/ML 4ML SYRINGE IV ONE ×3 (01:45→07:00)
[2022-05-21] MEDS ORDERED: TEMAZEPAM 15 MG CAP PO PRN (03:45)
[2022-05-21] MEDS ORDERED: ACETAMINOPHEN 325 MG TAB PO PRN (03:45)
[2022-05-21] MEDS ORDERED: ONDANSETRON HCL 4 MG/2 ML VIAL IV PRN (03:45)
[2022-05-21] MEDS: HYDROcodone-ACET 5/325MG TAB PO PRN (04:24)
[2022-05-21] MEDS ORDERED: cloNIDine HCL 0.1 MG TAB PO SCH (06:00)
[2022-05-21] MEDS: hydrALAZINE HCL 25 MG TAB PO SCH ×3 (06:00→21:37)
[2022-05-21] MEDS ORDERED: AMIODARONE HCL 200 MG TAB PO SCH (10:00)
[2022-05-21] MEDS: amLODIPine BESYLATE 5 MG TAB PO SCH (11:10)
[2022-05-21] MEDS: ASPirin 81 mg TAB PO SCH (11:10)
[2022-05-21] MEDS ORDERED: MORPHINE SULFATE INJ 2 MG/ml SYRG IV PRN (14:45)
[2022-05-21 18:07] VITALS: BP 157/86
[2022-05-21] MEDS: ATORVASTATIN 20 MG TAB PO SCH (21:37)
[2022-05-21 22:00] VITALS: BP 157/88
[2022-05-22 05:00] VITALS: BP 174/102
[2022-05-22] MEDS: hydrALAZINE HCL 25 MG TAB PO SCH ×3 (05:49→22:00)
[2022-05-22 08:54] VITALS: BP 138/93
[2022-05-22] MEDS: HYDROcodone-ACET 5/325MG TAB PO PRN ×2 (09:14→18:19)
[2022-05-22] MEDS: ASPirin 81 mg TAB PO SCH (10:27)
[2022-05-22] MEDS: amLODIPine BESYLATE 5 MG TAB PO SCH (10:27)
[2022-05-22 14:30] LABS: Potassium 4.2 mmol/L (3.5-5.1)
[2022-05-22 14:34] LABS: BUN/Creatinine Ratio 19.2; Basophils # (auto) 0.2 10 ^3/uL (0-0.2); Basophils % (auto) 2.4 % (0.0-2.0); Calcium 8.5 mg/dL (8.5-10.1); Eosinophils # (auto) 0.5 10 ^3/uL (0-0.8); Eosinophils % (auto) 7.2 % (0.0-7.0); Hemoglobin 13.5 g/dL (13.5-17.5); Lymphocytes # (auto) 1.5 10 ^3/uL (0.4-5.4); Mean Corpuscular Hemoglobin 29.9 pg (28.0-32.0); Mean Corpuscular Hgb Conc. 34.5 g/dL (32.0-36.0); Mean Corpuscular Volume 86.5 fL (80.0-100.0); Monocytes # (auto) 0.4 10 ^3/uL (0-1.3); Monocytes % (auto) 5.5 % (0.0-12.0); Neutrophils # (auto) 4.8 10 ^3/uL (1.6-8.6); Neutrophils % (auto) 64.9 % (37.0-80.0); Nucleated Red Blood Cells % 0.1 %; Red Blood Cells 4.51 10^6/uL (4.5-5.90); Red Cell Distribution Width 15.6 % (11.8-14.3); White Blood Cell 7.4 10^3/uL (4.4-10.8)
[2022-05-22] MEDS ORDERED: ENOXAPARIN SOD 40 MG/0.4 ML SYRINGE SC ONE (17:45)
[2022-05-22] MEDS ORDERED: FUROSEMIDE 20 MG/2 ML VIAL IV ONE (17:45)
[2022-05-22] MEDS ORDERED: LORazepam 2MG/ML-1ML VIAL IV PRN (21:30)
[2022-05-22 22:00] VITALS: BP 120/83
[2022-05-22] MEDS: ATORVASTATIN 20 MG TAB PO SCH (22:11)
[2022-05-23] MEDS: HYDROcodone-ACET 5/325MG TAB PO PRN ×4 (00:34→19:06)
[2022-05-23 05:00] VITALS: BP 132/82
[2022-05-23] MEDS: hydrALAZINE HCL 25 MG TAB PO SCH ×3 (06:06→23:02)
[2022-05-23 09:30] VITALS: BP 135/81
[2022-05-23] MEDS ORDERED: FUROSEMIDE 20 MG/2 ML VIAL IV SCH (10:00)
[2022-05-23] MEDS ORDERED: ENOXAPARIN SOD 40 MG/0.4 ML SYRINGE SC SCH (10:00)
[2022-05-23] MEDS: ASPirin 81 mg TAB PO SCH (10:47)
[2022-05-23] MEDS: METOPROLOL SUCCINATE XL 50 MG TAB PO SCH (10:48)
[2022-05-23 13:00] VITALS: BP 138/95
[2022-05-23 14:22] LABS: Free T4 (Free Thyroxine) 0.61 ng/dL (0.89-1.76)
[2022-05-23 14:23] LABS: Folate (Folic Acid) 18.97 ng/mL (5.38-24)
[2022-05-23] MEDS: SODIUM CHLORIDE 0.9% 1,000 ML IV SCH (18:30)
[2022-05-23] MEDS: ATORVASTATIN 20 MG TAB PO SCH (23:01)
[2022-05-23] MEDS: ENOXAPARIN SOD 80 MG/0.8ML SYRINGE SC SCH (23:02)
[2022-05-24 04:46] VITALS: BP 166/91
[2022-05-24] MEDS: SODIUM CHLORIDE 0.9% 1,000 ML IV SCH ×3 (05:09→21:30)
[2022-05-24] MEDS: hydrALAZINE HCL 25 MG TAB PO SCH ×3 (07:24→21:59)
[2022-05-24] MEDS: ENOXAPARIN SOD 80 MG/0.8ML SYRINGE SC SCH ×2 (10:18→21:59)
[2022-05-24] MEDS: ASPirin 81 mg TAB PO SCH (10:18)
[2022-05-24] MEDS: HYDROcodone-ACET 5/325MG TAB PO PRN ×2 (10:19→20:08)
[2022-05-24] MEDS: METOPROLOL SUCCINATE XL 50 MG TAB PO SCH (10:19)
[2022-05-24 14:00] LABS: BUN/Creatinine Ratio 17.4; Calcium 8.4 mg/dL (8.5-10.1); Potassium 3.6 mmol/L (3.5-5.1)
[2022-05-24] MEDS ORDERED: APIX5TAB PO (15:31)
[2022-05-24] MEDS ORDERED: HYDR-4902 PO (15:31)
[2022-05-24 17:00] VITALS: BP 149/97
[2022-05-24] MEDS: ATORVASTATIN 20 MG TAB PO SCH (21:59)
[2022-05-25] MEDS: hydrALAZINE HCL 25 MG TAB PO SCH (05:46)
[2022-05-25] MEDS: SODIUM CHLORIDE 0.9% 1,000 ML IV SCH (07:30)
[2022-05-25 09:04] VITALS: BP 126/62
== END 2022-05-25 10:44 | disposition home or self-care (01) | DRG 197 ==
LOC: ER 17:35 → EDBD 17:35 → TELE 05-21 03:42 → TELE-WESTW 05-21 17:42
PROVIDERS: ADMIT Nurse Practitioner; ATTEND Nurse Practitioner Acute Care
DX: I82.413 Acute embolism and thrombosis of femoral vein, bilateral (principal); E11.22 Type 2 diabetes mellitus with diabetic chronic kidney disease; E78.5 Hyperlipidemia, unspecified; F17.210 Nicotine dependence, cigarettes, uncomplicated; G89.4 Chronic pain syndrome; N39.0 Urinary tract infection, site not specified; N18.9 Chronic kidney disease, unspecified; G31.84 Mild cognitive impairment of uncertain or unknown etiology; J44.9 Chronic obstructive pulmonary disease, unspecified; N40.0 Benign prostatic hyperplasia without lower urinary tract symptoms; M54.50 Low back pain, unspecified; R26.9 Unspecified abnormalities of gait and mobility; I12.9 Hypertensive chronic kidney disease with stage 1 through stage 4 chronic kidney disease, or unspecified chronic kidney disease; R51.9 Headache, unspecified; H49.9 Unspecified paralytic strabismus; Z20.822 Contact with and (suspected) exposure to COVID-19; I25.10 Atherosclerotic heart disease of native coronary artery without angina pectoris; I25.2 Old myocardial infarction; Z82.49 Family history of ischemic heart disease and other diseases of the circulatory system; Z91.199 Patient's noncompliance with other medical treatment and regimen due to unspecified reason; Z79.01 Long term (current) use of anticoagulants; Z85.841 Personal history of malignant neoplasm of brain; Z86.711 Personal history of pulmonary embolism; Z86.718 Personal history of other venous thrombosis and embolism; Z87.440 Personal history of urinary (tract) infections; Z92.3 Personal history of irradiation; Z88.8 Allergy status to other drugs, medicaments and biological substances; Z90.49 Acquired absence of other specified parts of digestive tract
CPT/HCPCS: 36415; 70450; 71045; 80048; 80053; 82607; 82746; 83605; 83690; 83880; 84439; 84443; 84484; 85025; 85652; 86141; 87426; 93005; 93306; 93970; 95819; 96374; G0378; J3490

== ENCOUNTER 2022-05-26 02:54 | Inpatient (IN) | payer MEDICAID ==
[~2022-05-26] VITALS: Ht 182.9 cm; Wt 75.5 kg
[~2022-05-26 02:54] MED LIST changes: +APIX5TAB PO; +HYDR-4902 PO
[2022-05-26] MEDS ORDERED: SODIUM CHLORIDE 0.9% 2,450 ML IV ONE (03:30)
[2022-05-26] MEDS ORDERED: dilTIAZem 25 MG/5 ML VIAL IV ONE ×2 (03:30→03:45)
[2022-05-26 03:41] LABS: Basophils # (auto) 0.3 10 ^3/uL (0-0.2); Basophils % (auto) 4.4 % (0.0-2.0); Eosinophils # (auto) 0.6 10 ^3/uL (0-0.8); Eosinophils % (auto) 7.9 % (0.0-7.0); Hematocrit 45.5 % (41.0-53.0); Hemoglobin 14.7 g/dL (13.5-17.5); Lymphocytes # (auto) 2.3 10 ^3/uL (0.4-5.4); Lymphocytes % (auto) 30.8 % (10.0-50.0); Mean Corpuscular Hemoglobin 28.5 pg (28.0-32.0); Mean Corpuscular Hgb Conc. 32.3 g/dL (32.0-36.0); Mean Corpuscular Volume 88.3 fL (80.0-100.0); Monocytes # (auto) 0.5 10 ^3/uL (0-1.3); Monocytes % (auto) 6.8 % (0.0-12.0); Neutrophils # (auto) 3.8 10 ^3/uL (1.6-8.6); Neutrophils % (auto) 50.1 % (37.0-80.0); Nucleated Red Blood Cells % 0.2 %; Red Blood Cells 5.15 10^6/uL (4.5-5.90); Red Cell Distribution Width 15.8 % (11.8-14.3); White Blood Cell 7.6 10^3/uL (4.4-10.8)
[2022-05-26] MEDS ORDERED: IOHEXOL 350 MG/ML 100ML IJ ONE (03:45)
[2022-05-26 03:53] LABS: INR 1.09 (0.9-1.15)
[2022-05-26 03:57] LABS: Potassium 3.9 mmol/L (3.5-5.1)
[2022-05-26 03:58] LABS: Albumin 3.3 g/dL (3.4-5.0); Calcium 9.1 mg/dL (8.5-10.1)
[2022-05-26 04:00] LABS: Bilirubin, Total 0.4 mg/dL (0.2-1.0)
[2022-05-26 04:04] LABS: Blood Alcohol < 3.0 mg/dL (0-5); Magnesium 2.3 mg/dL (1.6-2.6)
[2022-05-26] MEDS ORDERED: LORazepam 2MG/ML-1ML VIAL IV ONE (05:00)
[2022-05-26] MEDS: NYSTATIN TOPICAL POWDER 15GM TOP SCH ×2 (10:00→22:41)
[2022-05-26] MEDS ORDERED: DEXTROSE (50%) 50ML SYRG IV PRN (10:00)
[2022-05-26] MEDS ORDERED: NITROGLYCERIN 0.4 MG SL TAB SL PRN (10:00)
[2022-05-26] MEDS ORDERED: MORPHINE SULFATE INJ 2 MG/ml SYRG IV PRN (10:00)
[2022-05-26] MEDS: ASPirin-EC 81 mg tab PO SCH (10:13)
[2022-05-26] MEDS: amLODIPine BESYLATE 5 MG TAB PO SCH (10:13)
[2022-05-26] MEDS: AMIODARONE HCL 200 MG TAB PO SCH ×2 (10:13→22:30)
[2022-05-26] MEDS: METOPROLOL TARTRATE 25 MG TAB PO SCH ×2 (10:14→22:42)
[2022-05-26] MEDS ORDERED: hydrALAZINE HCL 20 MG/ML VL IV PRN (10:15)
[2022-05-26] MEDS ORDERED: SODIUM CHLORIDE 0.9% 1,000 ML IV ONE (10:30)
[2022-05-26 11:24] LABS: INR 1.07 (0.9-1.15); Partial Thromboplastin Time 32.8 sec (24.6-33.4)
[2022-05-26] MEDS ORDERED: HEPARIN SODIUM (PORCINE) 5000 UNITS/ML 1ML VIAL IV ONE (11:55)
[2022-05-26] MEDS ORDERED: HEPARIN DRIP/D5W 100UNITS/ML 250 ML IV SCH ×2 (11:55→20:30)
[2022-05-26] MEDS: hydrALAZINE HCL 25 MG TAB PO SCH ×2 (12:05→18:00)
[2022-05-26] MEDS: ACCU-CHEK COMFORT CURVE STRIP VI SCH ×3 (12:08→22:31)
[2022-05-26] MEDS: InsuLIN REG 1unit/0.01ml Soln (100units/ml) SC SCH ×3 (12:08→22:38)
[2022-05-26 12:48] LABS: Cholesterol 120 mg/dL (< 200); HDL Cholesterol 45 mg/dL (40-59); LDL Cholesterol 65 mg/dL (< 100); Triglycerides 138 mg/dL (< 150)
[2022-05-26] MEDS: cloNIDine HCL 0.1 MG TAB PO SCH ×2 (14:00→22:00)
[2022-05-26] MEDS ORDERED: ALBUTEROL SULF 2.5 MG/0.5ML(0.5%) NEB SOLN NEB PRN (16:45)
[2022-05-26] MEDS: HYDROcodone-ACET 5/325MG TAB PO PRN (17:39)
[2022-05-26 19:10] LABS: INR 1.19 (0.9-1.15)
[2022-05-26 19:23] LABS: Partial Thromboplastin Time > 139.0 sec (24.6-33.4)
[2022-05-26 22:20] VITALS: BP 135/80
[2022-05-26] MEDS: ATORVASTATIN 20 MG TAB PO SCH (22:30)
[2022-05-27 03:14] LABS: INR 1.09 (0.9-1.15); Partial Thromboplastin Time 39.9 sec (24.6-33.4)
[2022-05-27] MEDS: HEPARIN DRIP/D5W 100UNITS/ML 250 ML IV SCH ×2 (03:55→05:38)
[2022-05-27] MEDS: cloNIDine HCL 0.1 MG TAB PO SCH ×3 (05:30→22:00)
[2022-05-27] MEDS: ACCU-CHEK COMFORT CURVE STRIP VI SCH ×4 (06:42→22:21)
[2022-05-27] MEDS: InsuLIN REG 1unit/0.01ml Soln (100units/ml) SC SCH ×4 (06:46→22:21)
[2022-05-27 07:38] LABS: Alanine Aminotransferase 18 U/L (16-61); Albumin 2.8 g/dL (3.4-5.0); Anion Gap 10 (5-15); BUN/Creatinine Ratio 14.4; Blood Urea Nitrogen 26 mg/dL (7-18); Calcium 8.5 mg/dL (8.5-10.1); Carbon Dioxide 26 mmol/L (21-32); Chloride 106 mmol/L (98-107); GFR African American 50 mL/min; GFR Non-African American 41 mL/min; Glucose 137 mg/dL (74-106); Potassium 3.3 mmol/L (3.5-5.1); Sodium 142 mmol/L (136-145)
[2022-05-27 07:39] LABS: Basophils # (auto) 0.2 10 ^3/uL (0-0.2); Basophils % (auto) 3.4 % (0.0-2.0); Eosinophils # (auto) 0.5 10 ^3/uL (0-0.8); Eosinophils % (auto) 9.2 % (0.0-7.0); Hematocrit 39.4 % (41.0-53.0); Hemoglobin 12.5 g/dL (13.5-17.5); Lymphocytes # (auto) 1.7 10 ^3/uL (0.4-5.4); Lymphocytes % (auto) 29.9 % (10.0-50.0); Mean Corpuscular Hemoglobin 27.9 pg (28.0-32.0); Mean Corpuscular Hgb Conc. 31.8 g/dL (32.0-36.0); Mean Corpuscular Volume 87.9 fL (80.0-100.0); Monocytes # (auto) 0.5 10 ^3/uL (0-1.3); Monocytes % (auto) 8.7 % (0.0-12.0); Neutrophils # (auto) 2.7 10 ^3/uL (1.6-8.6); Neutrophils % (auto) 48.8 % (37.0-80.0); Nucleated Red Blood Cells % 0.2 %; Red Blood Cells 4.48 10^6/uL (4.5-5.90); Red Cell Distribution Width 15.5 % (11.8-14.3); White Blood Cell 5.6 10^3/uL (4.4-10.8)
[2022-05-27 07:50] LABS: Alkaline Phosphatase 79 U/L (45-117); Aspartate Aminotransferase 22 U/L (15-37); Bilirubin, Total 0.3 mg/dL (0.2-1.0); Total Protein 6.5 g/dL (6.4-8.2)
[2022-05-27] MEDS: hydrALAZINE HCL 25 MG TAB PO SCH ×3 (08:24→18:00)
[2022-05-27 09:39] LABS: INR 1.11 (0.9-1.15); Partial Thromboplastin Time 57.4 sec (24.6-33.4)
[2022-05-27] MEDS: METOPROLOL TARTRATE 25 MG TAB PO SCH ×2 (10:00→22:27)
[2022-05-27] MEDS ORDERED: HEPARIN DRIP/D5W 100UNITS/ML 250 ML IV SCH ×2 (10:00→17:00)
[2022-05-27] MEDS: AMIODARONE HCL 200 MG TAB PO SCH ×2 (10:12→22:27)
[2022-05-27] MEDS: amLODIPine BESYLATE 5 MG TAB PO SCH (10:12)
[2022-05-27] MEDS: NYSTATIN TOPICAL POWDER 15GM TOP SCH ×2 (10:12→22:00)
[2022-05-27] MEDS: ASPirin-EC 81 mg tab PO SCH (10:12)
[2022-05-27] MEDS: DOXAZOSIN MESYL 2 MG TAB PO SCH (10:21)
[2022-05-27] MEDS: HYDROcodone-ACET 5/325MG TAB PO PRN (12:35)
[2022-05-27 16:38] LABS: INR 1.13 (0.9-1.15)
[2022-05-27 17:04] LABS: Partial Thromboplastin Time 76.5 sec (24.6-33.4)
[2022-05-27] MEDS: ATORVASTATIN 20 MG TAB PO SCH (22:27)
[2022-05-27 23:04] VITALS: BP 117/74
[2022-05-27 23:31] VITALS: BP 117/74
[2022-05-27] MEDS: HYDROcodone-ACET 10/325MG TAB PO PRN (23:33)
[2022-05-28] MEDS: HEPARIN DRIP/D5W 100UNITS/ML 250 ML IV SCH (00:30)
[2022-05-28 04:32] VITALS: BP 91/51
[2022-05-28] MEDS: cloNIDine HCL 0.1 MG TAB PO SCH (05:37)
[2022-05-28] MEDS: ACCU-CHEK COMFORT CURVE STRIP VI SCH ×4 (06:51→22:00)
[2022-05-28] MEDS: InsuLIN REG 1unit/0.01ml Soln (100units/ml) SC SCH ×4 (06:52→22:00)
[2022-05-28] MEDS: hydrALAZINE HCL 25 MG TAB PO SCH ×3 (08:00→18:00)
[2022-05-28 08:48] LABS: Basophils # (auto) 0.1 10 ^3/uL (0-0.2); Basophils % (auto) 2.6 % (0.0-2.0); Eosinophils # (auto) 0.4 10 ^3/uL (0-0.8); Hematocrit 36.7 % (41.0-53.0); Hemoglobin 12.1 g/dL (13.5-17.5); Lymphocytes # (auto) 1.4 10 ^3/uL (0.4-5.4); Lymphocytes % (auto) 26.9 % (10.0-50.0); Mean Corpuscular Hemoglobin 29.2 pg (28.0-32.0); Mean Corpuscular Volume 88.5 fL (80.0-100.0); Monocytes # (auto) 0.5 10 ^3/uL (0-1.3); Monocytes % (auto) 9.9 % (0.0-12.0); Neutrophils # (auto) 2.8 10 ^3/uL (1.6-8.6); Neutrophils % (auto) 52.6 % (37.0-80.0); Nucleated Red Blood Cells % 0.1 %; Red Blood Cells 4.15 10^6/uL (4.5-5.90); Red Cell Distribution Width 15.3 % (11.8-14.3); White Blood Cell 5.3 10^3/uL (4.4-10.8)
[2022-05-28 08:59] LABS: INR 1.08 (0.9-1.15); Partial Thromboplastin Time 60.1 sec (24.6-33.4)
[2022-05-28 09:00] VITALS: BP 111/66
[2022-05-28] MEDS: ASPirin-EC 81 mg tab PO SCH (09:49)
[2022-05-28] MEDS: HYDROcodone-ACET 10/325MG TAB PO PRN ×2 (09:51→21:47)
[2022-05-28] MEDS: NYSTATIN TOPICAL POWDER 15GM TOP SCH ×2 (10:00→22:00)
[2022-05-28] MEDS ORDERED: NICOTINE 21MG/24 HR TOPICAL PATCH TD ONE (12:15)
[2022-05-28] MEDS ORDERED: cloNIDine HCL 0.1 MG TAB PO PRN (12:15)
[2022-05-28] MEDS: DOXAZOSIN MESYL 2 MG TAB PO SCH (12:33)
[2022-05-28] MEDS: amLODIPine BESYLATE 5 MG TAB PO SCH (12:33)
[2022-05-28] MEDS: AMIODARONE HCL 200 MG TAB PO SCH ×3 (12:33→22:28)
[2022-05-28] MEDS: METOPROLOL TARTRATE 25 MG TAB PO SCH ×3 (12:34→22:28)
[2022-05-28 13:00] VITALS: BP 104/61
[2022-05-28 13:50] LABS: Calcium 8.7 mg/dL (8.5-10.1); Potassium 3.5 mmol/L (3.5-5.1)
[2022-05-28 14:04] LABS: BUN/Creatinine Ratio 17.2
[2022-05-28 16:14] VITALS: BP 99/64
[2022-05-28 16:59] VITALS: BP 99/58
[2022-05-28 18:17] LABS: INR 1.07 (0.9-1.15); Partial Thromboplastin Time 52.7 sec (24.6-33.4)
[2022-05-28 22:00] VITALS: BP 123/79
[2022-05-28] MEDS: ATORVASTATIN 20 MG TAB PO SCH ×2 (22:00→22:28)
[2022-05-28 22:33] LABS: INR 1.04 (0.9-1.15); Partial Thromboplastin Time 42.9 sec (24.6-33.4)
[2022-05-29] MEDS: HEPARIN DRIP/D5W 100UNITS/ML 250 ML IV SCH ×2 (00:15→23:59)
[2022-05-29 01:40] LABS: INR 1.06 (0.9-1.15); Partial Thromboplastin Time 31.9 sec (24.6-33.4)
[2022-05-29 04:21] LABS: INR 1.05 (0.9-1.15); Partial Thromboplastin Time 57.3 sec (24.6-33.4)
[2022-05-29 05:00] VITALS: BP 123/76
[2022-05-29] MEDS: InsuLIN REG 1unit/0.01ml Soln (100units/ml) SC SCH ×4 (05:42→22:09)
[2022-05-29] MEDS: ACCU-CHEK COMFORT CURVE STRIP VI SCH ×4 (07:02→22:00)
[2022-05-29] MEDS: hydrALAZINE HCL 25 MG TAB PO SCH ×3 (08:00→17:39)
[2022-05-29] MEDS: HYDROcodone-ACET 10/325MG TAB PO PRN (08:54)
[2022-05-29 09:00] VITALS: BP 130/78
[2022-05-29] MEDS: AMIODARONE HCL 200 MG TAB PO SCH ×2 (09:38→22:00)
[2022-05-29] MEDS: ASPirin-EC 81 mg tab PO SCH (09:38)
[2022-05-29] MEDS: DOXAZOSIN MESYL 2 MG TAB PO SCH (09:38)
[2022-05-29] MEDS: METOPROLOL TARTRATE 25 MG TAB PO SCH ×2 (09:39→22:00)
[2022-05-29] MEDS: NYSTATIN TOPICAL POWDER 15GM TOP SCH ×2 (09:40→22:00)
[2022-05-29] MEDS: amLODIPine BESYLATE 5 MG TAB PO SCH (09:40)
[2022-05-29 10:49] LABS: INR 1.08 (0.9-1.15)
[2022-05-29 10:55] LABS: Partial Thromboplastin Time 73.8 sec (24.6-33.4)
[2022-05-29 13:00] VITALS: BP 111/70
[2022-05-29 16:35] VITALS: BP 110/73
[2022-05-29 17:09] LABS: INR 1.1 (0.9-1.15); Partial Thromboplastin Time 66.9 sec (24.6-33.4)
[2022-05-29 21:11] VITALS: BP 110/53
[2022-05-29 22:00] VITALS: BP 116/71
[2022-05-29] MEDS: ATORVASTATIN 20 MG TAB PO SCH (22:00)
[2022-05-30 05:00] VITALS: BP 134/85
[2022-05-30] MEDS: ACCU-CHEK COMFORT CURVE STRIP VI SCH ×4 (05:55→22:00)
[2022-05-30] MEDS: InsuLIN REG 1unit/0.01ml Soln (100units/ml) SC SCH ×4 (05:55→22:03)
[2022-05-30] MEDS: hydrALAZINE HCL 25 MG TAB PO SCH ×3 (08:00→17:55)
[2022-05-30 09:00] VITALS: BP 121/72
[2022-05-30] MEDS: amLODIPine BESYLATE 5 MG TAB PO SCH ×2 (10:00→10:05)
[2022-05-30] MEDS: DOXAZOSIN MESYL 2 MG TAB PO SCH (10:00)
[2022-05-30] MEDS: NYSTATIN TOPICAL POWDER 15GM TOP SCH ×2 (10:03→22:00)
[2022-05-30] MEDS: METOPROLOL TARTRATE 25 MG TAB PO SCH ×2 (10:03→21:46)
[2022-05-30] MEDS: ASPirin-EC 81 mg tab PO SCH (10:04)
[2022-05-30] MEDS: AMIODARONE HCL 200 MG TAB PO SCH ×2 (10:04→21:59)
[2022-05-30 10:07] LABS: INR 1.12 (0.9-1.15)
[2022-05-30 10:33] LABS: Partial Thromboplastin Time 97.6 sec (24.6-33.4)
[2022-05-30] MEDS ORDERED: HEPARIN DRIP/D5W 100UNITS/ML 250 ML IV SCH ×3 (10:45→20:00)
[2022-05-30 13:00] VITALS: BP 133/88
[2022-05-30 17:00] VITALS: BP 120/66
[2022-05-30] MEDS: HYDROcodone-ACET 10/325MG TAB PO PRN (18:14)
[2022-05-30 19:34] LABS: INR 1.08 (0.9-1.15); Partial Thromboplastin Time 43.2 sec (24.6-33.4)
[2022-05-30] MEDS: ATORVASTATIN 20 MG TAB PO SCH (21:59)
[2022-05-30 22:00] VITALS: BP 141/87
[2022-05-31] MEDS: HYDROcodone-ACET 10/325MG TAB PO PRN ×5 (00:05→20:51)
[2022-05-31 02:59] LABS: INR 1.11 (0.9-1.15); Partial Thromboplastin Time 60.5 sec (24.6-33.4)
[2022-05-31 05:00] VITALS: BP 111/72
[2022-05-31] MEDS: ACCU-CHEK COMFORT CURVE STRIP VI SCH ×4 (06:38→21:00)
[2022-05-31] MEDS: InsuLIN REG 1unit/0.01ml Soln (100units/ml) SC SCH ×4 (06:38→21:03)
[2022-05-31] MEDS: hydrALAZINE HCL 25 MG TAB PO SCH ×3 (08:00→17:48)
[2022-05-31 09:00] VITALS: BP 116/71
[2022-05-31] MEDS: DOXAZOSIN MESYL 2 MG TAB PO SCH (09:50)
[2022-05-31] MEDS: amLODIPine BESYLATE 5 MG TAB PO SCH (09:51)
[2022-05-31] MEDS: METOPROLOL TARTRATE 25 MG TAB PO SCH ×2 (09:51→21:06)
[2022-05-31] MEDS: ASPirin-EC 81 mg tab PO SCH (09:51)
[2022-05-31] MEDS: AMIODARONE HCL 200 MG TAB PO SCH ×2 (09:51→21:05)
[2022-05-31] MEDS: NYSTATIN TOPICAL POWDER 15GM TOP SCH ×2 (09:51→21:06)
[2022-05-31 12:02] LABS: INR 1.1 (0.9-1.15); Partial Thromboplastin Time 44.4 sec (24.6-33.4)
[2022-05-31 12:31] VITALS: BP 137/84
[2022-05-31] MEDS: HEPARIN DRIP/D5W 100UNITS/ML 250 ML IV SCH ×2 (12:32→22:47)
[2022-05-31 17:00] VITALS: BP 129/74
[2022-05-31 18:50] LABS: INR 1.08 (0.9-1.15); Partial Thromboplastin Time 68.3 sec (24.6-33.4)
[2022-05-31] MEDS: ATORVASTATIN 20 MG TAB PO SCH (21:05)
[2022-05-31 22:00] VITALS: BP 153/87
[2022-06-01] MEDS: HYDROcodone-ACET 10/325MG TAB PO PRN ×6 (01:17→22:26)
[2022-06-01] MEDS ORDERED: LORazepam 0.5 MG TAB PO PRN (01:30)
[2022-06-01 01:36] LABS: INR 1.08 (0.9-1.15)
[2022-06-01 01:45] LABS: Partial Thromboplastin Time 76.6 sec (24.6-33.4)
[2022-06-01 05:00] VITALS: BP 138/79
[2022-06-01] MEDS: ACCU-CHEK COMFORT CURVE STRIP VI SCH ×4 (06:25→22:14)
[2022-06-01] MEDS: InsuLIN REG 1unit/0.01ml Soln (100units/ml) SC SCH ×4 (06:25→22:18)
[2022-06-01] MEDS: hydrALAZINE HCL 25 MG TAB PO SCH ×3 (07:33→17:42)
[2022-06-01 08:37] LABS: INR 1.08 (0.9-1.15); Partial Thromboplastin Time 69.5 sec (24.6-33.4)
[2022-06-01 09:02] VITALS: BP 138/80
[2022-06-01] MEDS: amLODIPine BESYLATE 5 MG TAB PO SCH (10:00)
[2022-06-01] MEDS: DOXAZOSIN MESYL 2 MG TAB PO SCH (10:00)
[2022-06-01] MEDS: METOPROLOL TARTRATE 25 MG TAB PO SCH ×2 (10:00→22:00)
[2022-06-01] MEDS: ASPirin-EC 81 mg tab PO SCH (10:16)
[2022-06-01] MEDS: NYSTATIN TOPICAL POWDER 15GM TOP SCH ×2 (10:16→22:28)
[2022-06-01] MEDS: AMIODARONE HCL 200 MG TAB PO SCH ×2 (10:16→22:27)
[2022-06-01 13:06] VITALS: BP 140/87
[2022-06-01 17:00] VITALS: BP 142/86
[2022-06-01 22:00] VITALS: BP 136/79
[2022-06-01] MEDS: ATORVASTATIN 20 MG TAB PO SCH (22:26)
[2022-06-01] MEDS: APIXABAN 5 MG TAB PO SCH (22:27)
[2022-06-02] MEDS: HYDROcodone-ACET 10/325MG TAB PO PRN ×3 (02:47→20:27)
[2022-06-02 05:00] VITALS: BP 124/67
[2022-06-02] MEDS: ACCU-CHEK COMFORT CURVE STRIP VI SCH ×4 (06:17→22:52)
[2022-06-02] MEDS: InsuLIN REG 1unit/0.01ml Soln (100units/ml) SC SCH ×4 (06:18→22:00)
[2022-06-02 08:00] VITALS: BP 127/79
[2022-06-02] MEDS: hydrALAZINE HCL 25 MG TAB PO SCH ×3 (08:00→18:04)
[2022-06-02] MEDS: amLODIPine BESYLATE 5 MG TAB PO SCH (10:00)
[2022-06-02] MEDS: DOXAZOSIN MESYL 2 MG TAB PO SCH (10:00)
[2022-06-02] MEDS: METOPROLOL TARTRATE 25 MG TAB PO SCH ×2 (10:00→22:00)
[2022-06-02] MEDS: AMIODARONE HCL 200 MG TAB PO SCH ×2 (10:00→22:42)
[2022-06-02] MEDS: ASPirin-EC 81 mg tab PO SCH (10:11)
[2022-06-02] MEDS: APIXABAN 5 MG TAB PO SCH ×2 (10:11→22:42)
[2022-06-02] MEDS: NYSTATIN TOPICAL POWDER 15GM TOP SCH ×2 (10:13→22:00)
[2022-06-02 12:00] VITALS: BP 141/91
[2022-06-02 16:00] VITALS: BP 139/90
[2022-06-02 21:44] VITALS: BP 154/99
[2022-06-02] MEDS: ATORVASTATIN 20 MG TAB PO SCH (22:43)
[2022-06-02] MEDS ORDERED: LACTULOSE 20Gm/30ML SOLN PO ONE (23:30)
[2022-06-03] MEDS: MORPHINE SULFATE INJ 2 MG/ml SYRG IV PRN ×2 (00:05→05:49)
[2022-06-03 04:37] VITALS: BP 126/82
[2022-06-03] MEDS: InsuLIN REG 1unit/0.01ml Soln (100units/ml) SC SCH ×4 (05:46→22:00)
[2022-06-03] MEDS: ACCU-CHEK COMFORT CURVE STRIP VI SCH ×4 (05:46→22:25)
[2022-06-03 07:33] LABS: Basophils # (auto) 0.2 10 ^3/uL (0-0.2); Basophils % (auto) 1.8 % (0.0-2.0); Eosinophils # (auto) 0.6 10 ^3/uL (0-0.8); Eosinophils % (auto) 6.8 % (0.0-7.0); Hematocrit 36.5 % (41.0-53.0); Lymphocytes # (auto) 1.4 10 ^3/uL (0.4-5.4); Lymphocytes % (auto) 16.2 % (10.0-50.0); Mean Corpuscular Hemoglobin 29.1 pg (28.0-32.0); Mean Corpuscular Volume 88.1 fL (80.0-100.0); Monocytes # (auto) 0.8 10 ^3/uL (0-1.3); Monocytes % (auto) 9.3 % (0.0-12.0); Neutrophils # (auto) 5.7 10 ^3/uL (1.6-8.6); Neutrophils % (auto) 65.9 % (37.0-80.0); Nucleated Red Blood Cells % 0.3 %; Red Blood Cells 4.14 10^6/uL (4.5-5.90); Red Cell Distribution Width 15.9 % (11.8-14.3); White Blood Cell 8.7 10^3/uL (4.4-10.8)
[2022-06-03 07:52] LABS: BUN/Creatinine Ratio 22.1; Calcium 8.9 mg/dL (8.5-10.1); Potassium 4.2 mmol/L (3.5-5.1)
[2022-06-03 08:23] VITALS: BP 131/70
[2022-06-03] MEDS: LACTULOSE 20Gm/30ML SOLN PO SCH (10:00)
[2022-06-03] MEDS: METOPROLOL TARTRATE 25 MG TAB PO SCH ×2 (10:00→22:00)
[2022-06-03] MEDS: AMIODARONE HCL 200 MG TAB PO SCH ×2 (10:00→22:00)
[2022-06-03] MEDS: ASPirin-EC 81 mg tab PO SCH (10:42)
[2022-06-03] MEDS: APIXABAN 5 MG TAB PO SCH ×2 (10:42→22:21)
[2022-06-03] MEDS: amLODIPine BESYLATE 5 MG TAB PO SCH (10:45)
[2022-06-03] MEDS: DOXAZOSIN MESYL 2 MG TAB PO SCH (10:45)
[2022-06-03] MEDS: NYSTATIN TOPICAL POWDER 15GM TOP SCH ×2 (10:54→22:24)
[2022-06-03 13:00] VITALS: BP 143/92
[2022-06-03 17:51] VITALS: BP 123/77
[2022-06-03 22:00] VITALS: BP 118/76
[2022-06-03] MEDS: ATORVASTATIN 20 MG TAB PO SCH (22:22)
[2022-06-04] MEDS: MORPHINE SULFATE INJ 2 MG/ml SYRG IV PRN ×3 (04:54→17:51)
[2022-06-04 05:00] VITALS: BP 137/96
[2022-06-04] MEDS: ACCU-CHEK COMFORT CURVE STRIP VI SCH ×4 (06:38→22:37)
[2022-06-04] MEDS: InsuLIN REG 1unit/0.01ml Soln (100units/ml) SC SCH ×4 (06:39→22:37)
[2022-06-04 07:02] LABS: BUN/Creatinine Ratio 19.1; Calcium 8.8 mg/dL (8.5-10.1)
[2022-06-04 07:12] LABS: Basophils # (auto) 0.1 10 ^3/uL (0-0.2); Basophils % (auto) 2.6 % (0.0-2.0); Eosinophils # (auto) 0.5 10 ^3/uL (0-0.8); Eosinophils % (auto) 9.7 % (0.0-7.0); Hematocrit 32.9 % (41.0-53.0); Lymphocytes # (auto) 1.4 10 ^3/uL (0.4-5.4); Lymphocytes % (auto) 26.3 % (10.0-50.0); Mean Corpuscular Hemoglobin 29.4 pg (28.0-32.0); Mean Corpuscular Hgb Conc. 33.6 g/dL (32.0-36.0); Mean Corpuscular Volume 87.5 fL (80.0-100.0); Monocytes # (auto) 0.4 10 ^3/uL (0-1.3); Neutrophils # (auto) 2.8 10 ^3/uL (1.6-8.6); Neutrophils % (auto) 53.4 % (37.0-80.0); Nucleated Red Blood Cells % 0.2 %; Red Blood Cells 3.76 10^6/uL (4.5-5.90); Red Cell Distribution Width 15.3 % (11.8-14.3); White Blood Cell 5.2 10^3/uL (4.4-10.8)
[2022-06-04 09:00] VITALS: BP 134/77
[2022-06-04] MEDS: LACTULOSE 20Gm/30ML SOLN PO SCH (10:00)
[2022-06-04] MEDS: METOPROLOL TARTRATE 25 MG TAB PO SCH ×2 (10:05→22:36)
[2022-06-04] MEDS: amLODIPine BESYLATE 5 MG TAB PO SCH (10:06)
[2022-06-04] MEDS: DOXAZOSIN MESYL 2 MG TAB PO SCH (10:07)
[2022-06-04] MEDS: ASPirin-EC 81 mg tab PO SCH (10:08)
[2022-06-04] MEDS: AMIODARONE HCL 200 MG TAB PO SCH ×2 (10:08→22:36)
[2022-06-04] MEDS: APIXABAN 5 MG TAB PO SCH ×2 (10:08→22:36)
[2022-06-04] MEDS: NYSTATIN TOPICAL POWDER 15GM TOP SCH ×2 (10:11→22:37)
[2022-06-04 13:00] VITALS: BP 120/73
[2022-06-04 15:49] VITALS: BP 103/59
[2022-06-04 22:00] VITALS: BP 115/65
[2022-06-04] MEDS: ATORVASTATIN 20 MG TAB PO SCH (22:36)
[2022-06-05] MEDS: MORPHINE SULFATE INJ 2 MG/ml SYRG IV PRN ×4 (01:36→21:07)
[2022-06-05 05:00] VITALS: BP 115/71
[2022-06-05 05:23] LABS: Basophils # (auto) 0.2 10 ^3/uL (0-0.2); Basophils % (auto) 2.7 % (0.0-2.0); Eosinophils # (auto) 0.4 10 ^3/uL (0-0.8); Eosinophils % (auto) 7.6 % (0.0-7.0); Hematocrit 33.8 % (41.0-53.0); Lymphocytes # (auto) 1.5 10 ^3/uL (0.4-5.4); Lymphocytes % (auto) 26.1 % (10.0-50.0); Mean Corpuscular Hemoglobin 28.8 pg (28.0-32.0); Mean Corpuscular Hgb Conc. 32.6 g/dL (32.0-36.0); Mean Corpuscular Volume 88.4 fL (80.0-100.0); Monocytes # (auto) 0.5 10 ^3/uL (0-1.3); Monocytes % (auto) 9.1 % (0.0-12.0); Neutrophils # (auto) 3.2 10 ^3/uL (1.6-8.6); Neutrophils % (auto) 54.5 % (37.0-80.0); Nucleated Red Blood Cells % 0.1 %; Red Blood Cells 3.82 10^6/uL (4.5-5.90); Red Cell Distribution Width 15.9 % (11.8-14.3); White Blood Cell 5.8 10^3/uL (4.4-10.8)
[2022-06-05 05:38] LABS: BUN/Creatinine Ratio 23.5; Potassium 4.5 mmol/L (3.5-5.1)
[2022-06-05] MEDS: ACCU-CHEK COMFORT CURVE STRIP VI SCH ×4 (06:47→22:34)
[2022-06-05] MEDS: InsuLIN REG 1unit/0.01ml Soln (100units/ml) SC SCH ×4 (06:48→22:00)
[2022-06-05 08:00] VITALS: BP 112/70
[2022-06-05 09:00] VITALS: BP 112/70
[2022-06-05] MEDS: amLODIPine BESYLATE 5 MG TAB PO SCH (10:00)
[2022-06-05] MEDS: METOPROLOL TARTRATE 25 MG TAB PO SCH ×2 (10:00→22:00)
[2022-06-05] MEDS: AMIODARONE HCL 200 MG TAB PO SCH ×2 (10:16→22:35)
[2022-06-05] MEDS: LACTULOSE 20Gm/30ML SOLN PO SCH (10:17)
[2022-06-05] MEDS: APIXABAN 5 MG TAB PO SCH ×2 (10:18→22:34)
[2022-06-05] MEDS: ASPirin-EC 81 mg tab PO SCH (10:18)
[2022-06-05] MEDS: DOXAZOSIN MESYL 2 MG TAB PO SCH (10:21)
[2022-06-05] MEDS: NYSTATIN TOPICAL POWDER 15GM TOP SCH ×2 (10:21→22:35)
[2022-06-05 12:32] VITALS: BP 138/89
[2022-06-05 16:39] VITALS: BP 95/56
[2022-06-05 22:00] VITALS: BP 116/78
[2022-06-05] MEDS: ATORVASTATIN 20 MG TAB PO SCH (22:34)
[2022-06-06] MEDS: MORPHINE SULFATE INJ 2 MG/ml SYRG IV PRN ×4 (03:42→22:36)
[2022-06-06 05:00] VITALS: BP 133/81
[2022-06-06] MEDS: ACCU-CHEK COMFORT CURVE STRIP VI SCH ×4 (06:23→22:26)
[2022-06-06] MEDS: InsuLIN REG 1unit/0.01ml Soln (100units/ml) SC SCH ×4 (06:23→22:31)
[2022-06-06 08:00] VITALS: BP_SYST 127; BP_DIAS 43; BP_DIAS 73
[2022-06-06] MEDS: DOXAZOSIN MESYL 2 MG TAB PO SCH (09:41)
[2022-06-06] MEDS: LACTULOSE 20Gm/30ML SOLN PO SCH (09:41)
[2022-06-06] MEDS: ASPirin-EC 81 mg tab PO SCH (09:42)
[2022-06-06] MEDS: APIXABAN 5 MG TAB PO SCH ×2 (09:42→22:24)
[2022-06-06] MEDS: METOPROLOL TARTRATE 25 MG TAB PO SCH ×2 (09:42→22:00)
[2022-06-06] MEDS: amLODIPine BESYLATE 5 MG TAB PO SCH (09:42)
[2022-06-06] MEDS: AMIODARONE HCL 200 MG TAB PO SCH ×2 (09:42→22:25)
[2022-06-06] MEDS: NYSTATIN TOPICAL POWDER 15GM TOP SCH ×2 (09:43→22:25)
[2022-06-06 12:00] VITALS: BP 133/75
[2022-06-06 16:00] VITALS: BP 123/72
[2022-06-06 22:00] VITALS: BP 131/73
[2022-06-06] MEDS: ATORVASTATIN 20 MG TAB PO SCH (22:25)
[2022-06-07] VITALS (7 sets, daily range): BP systolic 127–146; BP diastolic 43–92
[2022-06-07] MEDS: MORPHINE SULFATE INJ 2 MG/ml SYRG IV PRN ×3 (05:17→20:23)
[2022-06-07] MEDS: ACCU-CHEK COMFORT CURVE STRIP VI SCH ×4 (06:24→21:49)
[2022-06-07] MEDS: InsuLIN REG 1unit/0.01ml Soln (100units/ml) SC SCH ×4 (06:25→21:49)
[2022-06-07] MEDS: ASPirin-EC 81 mg tab PO SCH (09:54)
[2022-06-07] MEDS: APIXABAN 5 MG TAB PO SCH ×2 (09:54→21:48)
[2022-06-07] MEDS: AMIODARONE HCL 200 MG TAB PO SCH ×2 (09:54→21:48)
[2022-06-07] MEDS: LACTULOSE 20Gm/30ML SOLN PO SCH (09:58)
[2022-06-07] MEDS: DOXAZOSIN MESYL 2 MG TAB PO SCH (09:59)
[2022-06-07] MEDS: METOPROLOL TARTRATE 25 MG TAB PO SCH ×2 (09:59→21:48)
[2022-06-07] MEDS: NYSTATIN TOPICAL POWDER 15GM TOP SCH ×2 (10:00→21:49)
[2022-06-07] MEDS: amLODIPine BESYLATE 5 MG TAB PO SCH (10:00)
[2022-06-07] MEDS: ATORVASTATIN 20 MG TAB PO SCH (21:48)
[2022-06-08] VITALS (8 sets, daily range): BP systolic 127–155; BP diastolic 43–103
[2022-06-08] MEDS: MORPHINE SULFATE INJ 2 MG/ml SYRG IV PRN ×4 (03:22→23:14)
[2022-06-08] MEDS ORDERED: DOCUSATE ORAL LIQUID 100 MG/10 ML UD PO ONE (05:00)
[2022-06-08] MEDS: ACCU-CHEK COMFORT CURVE STRIP VI SCH ×4 (06:19→22:09)
[2022-06-08] MEDS: InsuLIN REG 1unit/0.01ml Soln (100units/ml) SC SCH ×4 (06:19→22:00)
[2022-06-08] MEDS: DOCUSATE ORAL LIQUID 100 MG/10 ML UD PO SCH (08:09)
[2022-06-08] MEDS: METOPROLOL TARTRATE 25 MG TAB PO SCH ×2 (08:09→22:01)
[2022-06-08] MEDS: amLODIPine BESYLATE 5 MG TAB PO SCH (08:09)
[2022-06-08] MEDS: DOXAZOSIN MESYL 2 MG TAB PO SCH (08:09)
[2022-06-08] MEDS: NYSTATIN TOPICAL POWDER 15GM TOP SCH ×2 (08:10→22:00)
[2022-06-08] MEDS: LACTULOSE 20Gm/30ML SOLN PO SCH (09:45)
[2022-06-08] MEDS: ASPirin-EC 81 mg tab PO SCH (09:46)
[2022-06-08] MEDS: AMIODARONE HCL 200 MG TAB PO SCH ×2 (09:47→22:01)
[2022-06-08] MEDS: APIXABAN 5 MG TAB PO SCH ×2 (09:47→22:02)
[2022-06-08] MEDS: ATORVASTATIN 20 MG TAB PO SCH (22:01)
[2022-06-09 05:00] VITALS: BP 144/86
[2022-06-09] MEDS: ACCU-CHEK COMFORT CURVE STRIP VI SCH (06:21)
[2022-06-09] MEDS: InsuLIN REG 1unit/0.01ml Soln (100units/ml) SC SCH (06:21)
[2022-06-09] MEDS: MORPHINE SULFATE INJ 2 MG/ml SYRG IV PRN (06:26)
[2022-06-09 09:00] VITALS: BP 143/83
[2022-06-09] MEDS: amLODIPine BESYLATE 5 MG TAB PO SCH (10:30)
[2022-06-09] MEDS: DOCUSATE ORAL LIQUID 100 MG/10 ML UD PO SCH (10:30)
[2022-06-09] MEDS: METOPROLOL TARTRATE 25 MG TAB PO SCH (10:30)
[2022-06-09] MEDS: LACTULOSE 20Gm/30ML SOLN PO SCH (10:30)
[2022-06-09] MEDS: NYSTATIN TOPICAL POWDER 15GM TOP SCH (10:30)
[2022-06-09] MEDS: ASPirin-EC 81 mg tab PO SCH (10:30)
[2022-06-09] MEDS: DOXAZOSIN MESYL 2 MG TAB PO SCH (10:30)
[2022-06-09] MEDS: APIXABAN 5 MG TAB PO SCH (10:30)
[2022-06-09] MEDS: AMIODARONE HCL 200 MG TAB PO SCH (10:30)
== END 2022-06-09 10:30 | DRG 201 ==
LOC: EDBD 02:54 → ER 02:54 → TELE 10:10 → TELE-WESTW 16:13 → TELE 16:33 → TELE-WESTW 05-27 21:40 → WEST WING 05-31 12:30 → TELE-WESTW 05-31 22:37 → WEST WING 06-01 14:05
PROVIDERS: ADMIT Registered Nurse; ATTEND Internal Medicine
DX: I47.1 Supraventricular tachycardia (principal); N17.9 Acute kidney failure, unspecified; I82.403 Acute embolism and thrombosis of unspecified deep veins of lower extremity, bilateral; D49.6 Neoplasm of unspecified behavior of brain; E11.22 Type 2 diabetes mellitus with diabetic chronic kidney disease; I50.9 Heart failure, unspecified; I13.0 Hypertensive heart and chronic kidney disease with heart failure and stage 1 through stage 4 chronic kidney disease, or unspecified chronic kidney disease; B37.9 Candidiasis, unspecified; E78.5 Hyperlipidemia, unspecified; Z20.822 Contact with and (suspected) exposure to COVID-19; K86.1 Other chronic pancreatitis; J44.9 Chronic obstructive pulmonary disease, unspecified; N18.32 Chronic kidney disease, stage 3b; F17.210 Nicotine dependence, cigarettes, uncomplicated; Z86.718 Personal history of other venous thrombosis and embolism; Z86.011 Personal history of benign neoplasm of the brain; Z82.49 Family history of ischemic heart disease and other diseases of the circulatory system; Z86.711 Personal history of pulmonary embolism; Z88.8 Allergy status to other drugs, medicaments and biological substances; Z90.49 Acquired absence of other specified parts of digestive tract
CPT/HCPCS: 36415; 71045; 71275; 80048; 80053; 80061; 80320; 82140; 82962; 83735; 83880; 84100; 84484; 85025; 85610; 85730; 87081; 87426; 93005; 96361; 96374; 96375; 97110; 97116; 97163; 97530; 99291; G0378; J1815

== ENCOUNTER 2022-06-09 22:23 | Emergency (ER) | payer MEDICAID ==
[~2022-06-09] VITALS: Ht 180.3 cm; Wt 77.2 kg
[2022-06-09 23:04] VITALS: BP 126/94
== END 2022-06-10 04:09 | disposition home or self-care (01) ==
LOC: EDBD 22:23 → ER 22:23
DX: M79.10 Myalgia, unspecified site (principal); G89.4 Chronic pain syndrome; F17.210 Nicotine dependence, cigarettes, uncomplicated; I13.0 Hypertensive heart and chronic kidney disease with heart failure and stage 1 through stage 4 chronic kidney disease, or unspecified chronic kidney disease; N18.9 Chronic kidney disease, unspecified; I50.9 Heart failure, unspecified; J44.9 Chronic obstructive pulmonary disease, unspecified; Z90.49 Acquired absence of other specified parts of digestive tract; Z88.6 Allergy status to analgesic agent

== ENCOUNTER 2022-10-24 17:41 | Inpatient (IN) | payer MEDICAID ==
[~2022-10-24] VITALS: Ht 182.9 cm; Wt 75.0 kg
[~2022-10-24 17:41] MED LIST changes: +AMIO200T13 PO; -AMIO200T4 PO; -AMLO-496 PO; +AMLO1TAB23 PO; +ASPI-736 PO; -ASPI1CHW15 PO; -DOXA4TAB6 PO; +DOXA4TAB83 PO
[2022-10-24 18:18] LABS: Basophils # (auto) 0.1 10 ^3/uL (0-0.2); Basophils % (auto) 1.8 % (0.0-2.0); Eosinophils # (auto) 0.7 10 ^3/uL (0-0.8); Hematocrit 27.3 % (41.0-53.0); Lymphocytes # (auto) 0.6 10 ^3/uL (0.4-5.4); Lymphocytes % (auto) 8.4 % (10.0-50.0); Mean Corpuscular Hemoglobin 27.9 pg (28.0-32.0); Mean Corpuscular Hgb Conc. 32.8 g/dL (32.0-36.0); Mean Corpuscular Volume 85.1 fL (80.0-100.0); Monocytes # (auto) 0.5 10 ^3/uL (0-1.3); Monocytes % (auto) 7.2 % (0.0-12.0); Neutrophils # (auto) 5.6 10 ^3/uL (1.6-8.6); Neutrophils % (auto) 73.6 % (37.0-80.0); Red Blood Cells 3.21 10^6/uL (4.5-5.90); Red Cell Distribution Width 17.7 % (11.8-14.3); White Blood Cell 7.6 10^3/uL (4.4-10.8)
[2022-10-24 18:34] LABS: Albumin 2.3 g/dL (3.4-5.0); Calcium 8.1 mg/dL (8.5-10.1); Magnesium 2.4 mg/dL (1.6-2.6); Potassium 3.7 mmol/L (3.5-5.1)
[2022-10-24 18:37] LABS: BUN/Creatinine Ratio 22.3 (10.0-20.0); Bilirubin, Total 0.7 mg/dL (0.2-1.0); Total Protein 5.9 g/dL (6.4-8.2)
[2022-10-24] MEDS ORDERED: SODIUM CHLORIDE 0.9% 1,000 ML IV ONE (21:45)
[2022-10-24] MEDS ORDERED: PANTOPRAZOLE 40 MG/10 ML VIAL INJ IV ONE ×2 (22:00→22:30)
[2022-10-25] MEDS: ONDANSETRON HCL 4 MG/2 ML VIAL IV PRN (05:20)
[2022-10-25] MEDS: MORPHINE SULFATE INJ 2 MG/ml SYRG IV PRN ×3 (05:20→19:59)
[2022-10-25 06:25] LABS: Urine Bacteria MANY /hpf (None Seen); Urine Blood 1+ /uL (Negative); Urine Hyaline Cast MANY /lpf (0 - 2); Urine Mucus FEW (None Seen); Urine Specific Gravity 1.015 (1.001-1.035); Urine WBC 45 /hpf (0 - 3)
[2022-10-25 06:52] LABS: Basophils # (auto) 0.1 10 ^3/uL (0-0.2); Basophils % (auto) 1.7 % (0.0-2.0); Eosinophils # (auto) 0.5 10 ^3/uL (0-0.8); Eosinophils % (auto) 8.8 % (0.0-7.0); Hematocrit 28.9 % (41.0-53.0); Hemoglobin 9.4 g/dL (13.5-17.5); Lymphocytes # (auto) 0.9 10 ^3/uL (0.4-5.4); Lymphocytes % (auto) 13.9 % (10.0-50.0); Mean Corpuscular Hgb Conc. 32.5 g/dL (32.0-36.0); Monocytes # (auto) 0.4 10 ^3/uL (0-1.3); Monocytes % (auto) 7.1 % (0.0-12.0); Neutrophils # (auto) 4.2 10 ^3/uL (1.6-8.6); Neutrophils % (auto) 68.5 % (37.0-80.0); Red Blood Cells 3.36 10^6/uL (4.5-5.90); Red Cell Distribution Width 17.7 % (11.8-14.3); White Blood Cell 6.2 10^3/uL (4.4-10.8)
[2022-10-25] MEDS ORDERED: CEFEPIME 1GM/ 50ML 50 ML IV ONE (07:00)
[2022-10-25 07:27] LABS: Albumin 2.4 g/dL (3.4-5.0); Calcium 8.5 mg/dL (8.5-10.1); Potassium 3.4 mmol/L (3.5-5.1)
[2022-10-25 07:31] LABS: BUN/Creatinine Ratio 20.8 (10.0-20.0); Bilirubin, Total 0.8 mg/dL (0.2-1.0); Total Protein 6.7 g/dL (6.4-8.2)
[2022-10-25] MEDS: D5W/SOD CHL 0.45%/KCL 20MEQ 1,000 ML IV SCH ×2 (07:51→17:00)
[2022-10-25] MEDS: DOXAZOSIN MESYL 2 MG TAB PO SCH (10:00)
[2022-10-25] MEDS ORDERED: PANTOPRAZOLE 40 MG/10 ML VIAL INJ IV SCH (10:00)
[2022-10-25] MEDS ORDERED: ENOXAPARIN SOD 40 MG/0.4 ML SYRINGE SC SCH (10:00)
[2022-10-25] MEDS ORDERED: PATIENTS OWN MEDICATION (Aspirin (Aspirin Low Strength) 81 MG) PO SCH (10:00)
[2022-10-25] MEDS ORDERED: DOXAZOSIN MESYLATE PO SCH (10:00)
[2022-10-25] MEDS: PANTOPRAZOLE 40 MG/10 ML VIAL INJ IV SCH (11:06)
[2022-10-25] MEDS: AMIODARONE HCL 200 MG TAB PO SCH ×2 (11:07→23:30)
[2022-10-25] MEDS: METOPROLOL TARTRATE 25 MG TAB PO SCH ×2 (11:07→23:30)
[2022-10-25] MEDS: ASPirin 81 mg TAB PO SCH (11:07)
[2022-10-25] MEDS: APIXABAN 5 MG TAB PO SCH (11:08)
[2022-10-25] MEDS: CEFEPIME 1GM/ 50ML 50 ML IV SCH ×2 (18:06→22:00)
[2022-10-26] MEDS: APIXABAN 5 MG TAB PO SCH ×3 (00:43→23:54)
[2022-10-26] MEDS: ATORVASTATIN 20 MG TAB PO SCH ×2 (00:43→23:57)
[2022-10-26] MEDS: ONDANSETRON HCL 4 MG/2 ML VIAL IV PRN ×2 (00:44→08:19)
[2022-10-26] MEDS: MORPHINE SULFATE INJ 2 MG/ml SYRG IV PRN ×2 (00:44→08:19)
[2022-10-26] MEDS: CEFEPIME 1GM/ 50ML 50 ML IV SCH ×6 (00:48→23:54)
[2022-10-26] MEDS: D5W/SOD CHL 0.45%/KCL 20MEQ 1,000 ML IV SCH ×2 (05:26→13:00)
[2022-10-26] MEDS: DOXAZOSIN MESYL 2 MG TAB PO SCH (09:55)
[2022-10-26] MEDS: AMIODARONE HCL 200 MG TAB PO SCH ×2 (10:00→23:55)
[2022-10-26] MEDS: ASPirin 81 mg TAB PO SCH (10:00)
[2022-10-26] MEDS: PANTOPRAZOLE 40 MG/10 ML VIAL INJ IV SCH (10:00)
[2022-10-26] MEDS: HYDROcodone-ACET 5/325MG TAB PO PRN ×2 (10:01→23:54)
[2022-10-26] MEDS: METOPROLOL TARTRATE 25 MG TAB PO SCH ×2 (10:01→23:54)
[2022-10-26 22:22] LABS: Albumin 1.9 g/dL (3.4-5.0); Calcium 7.8 mg/dL (8.5-10.1); Potassium 4.1 mmol/L (3.5-5.1)
[2022-10-26 22:27] LABS: BUN/Creatinine Ratio 20.9 (10.0-20.0); Bilirubin, Total 0.5 mg/dL (0.2-1.0); Total Protein 5.8 g/dL (6.4-8.2)
[2022-10-27] MEDS: D5W/SOD CHL 0.45%/KCL 20MEQ 1,000 ML IV SCH ×3 (04:18→19:00)
[2022-10-27] MEDS: CEFEPIME 1GM/ 50ML 50 ML IV SCH ×3 (06:29→21:14)
[2022-10-27] MEDS: MORPHINE SULFATE INJ 2 MG/ml SYRG IV PRN ×3 (07:42→19:57)
[2022-10-27 07:48] LABS: Basophils # (auto) 0.1 10 ^3/uL (0-0.2); Basophils % (auto) 1.6 % (0.0-2.0); Eosinophils % (auto) 13.4 % (0.0-7.0); Hematocrit 27.7 % (41.0-53.0); Hemoglobin 9.2 g/dL (13.5-17.5); Lymphocytes # (auto) 1.4 10 ^3/uL (0.4-5.4); Mean Corpuscular Hemoglobin 28.3 pg (28.0-32.0); Mean Corpuscular Hgb Conc. 33.2 g/dL (32.0-36.0); Mean Corpuscular Volume 85.3 fL (80.0-100.0); Monocytes # (auto) 0.6 10 ^3/uL (0-1.3); Neutrophils # (auto) 4.2 10 ^3/uL (1.6-8.6); Nucleated Red Blood Cells % 0.1 %; Red Blood Cells 3.24 10^6/uL (4.5-5.90); Red Cell Distribution Width 17.2 % (11.8-14.3); White Blood Cell 7.3 10^3/uL (4.4-10.8)
[2022-10-27 08:12] LABS: Calcium 7.8 mg/dL (8.5-10.1); Potassium 4.6 mmol/L (3.5-5.1)
[2022-10-27 08:18] LABS: BUN/Creatinine Ratio 19.6 (10.0-20.0); Bilirubin, Total 0.4 mg/dL (0.2-1.0); Total Protein 5.9 g/dL (6.4-8.2)
[2022-10-27] MEDS: METOPROLOL TARTRATE 25 MG TAB PO SCH ×2 (10:00→21:11)
[2022-10-27] MEDS: DOXAZOSIN MESYL 2 MG TAB PO SCH (10:00)
[2022-10-27] MEDS: PANTOPRAZOLE 40 MG/10 ML VIAL INJ IV SCH (10:26)
[2022-10-27] MEDS: ASPirin 81 mg TAB PO SCH (10:27)
[2022-10-27] MEDS: HYDROcodone-ACET 5/325MG TAB PO PRN ×2 (10:27→21:10)
[2022-10-27] MEDS: AMIODARONE HCL 200 MG TAB PO SCH ×2 (10:27→21:10)
[2022-10-27] MEDS: APIXABAN 5 MG TAB PO SCH ×2 (10:27→21:10)
[2022-10-27 16:38] VITALS: BP 138/84
[2022-10-27 17:00] VITALS: BP 122/77
[2022-10-27] MEDS: ATORVASTATIN 20 MG TAB PO SCH (21:10)
[2022-10-27 22:00] VITALS: BP 137/89
[2022-10-28] MEDS: MORPHINE SULFATE INJ 2 MG/ml SYRG IV PRN ×6 (00:06→23:49)
[2022-10-28] MEDS: D5W/SOD CHL 0.45%/KCL 20MEQ 1,000 ML IV SCH (04:58)
[2022-10-28 05:00] VITALS: BP 147/92
[2022-10-28] MEDS: CEFEPIME 1GM/ 50ML 50 ML IV SCH ×3 (06:12→23:46)
[2022-10-28 09:00] VITALS: BP 136/87
[2022-10-28] MEDS: APIXABAN 5 MG TAB PO SCH ×2 (09:15→23:47)
[2022-10-28] MEDS: ASPirin 81 mg TAB PO SCH (09:16)
[2022-10-28] MEDS: METOPROLOL TARTRATE 25 MG TAB PO SCH ×2 (09:16→23:47)
[2022-10-28] MEDS: PANTOPRAZOLE 40 MG TAB PO SCH (09:16)
[2022-10-28] MEDS: AMIODARONE HCL 200 MG TAB PO SCH ×2 (09:16→23:46)
[2022-10-28] MEDS: DOXAZOSIN MESYL 2 MG TAB PO SCH (09:17)
[2022-10-28 13:00] VITALS: BP 105/57
[2022-10-28 17:00] VITALS: BP 117/72
[2022-10-28] MEDS: HYDROcodone-ACET 5/325MG TAB PO PRN (20:36)
[2022-10-28] MEDS: ATORVASTATIN 20 MG TAB PO SCH (23:46)
[2022-10-29] MEDS: D5W/SOD CHL 0.45%/KCL 20MEQ 1,000 ML IV SCH ×3 (01:00→22:00)
[2022-10-29] MEDS: HYDROcodone-ACET 5/325MG TAB PO PRN ×2 (03:08→21:07)
[2022-10-29] MEDS: MORPHINE SULFATE INJ 2 MG/ml SYRG IV PRN ×3 (04:42→20:20)
[2022-10-29 05:00] VITALS: BP 126/73
[2022-10-29] MEDS: CEFEPIME 1GM/ 50ML 50 ML IV SCH ×3 (06:56→20:17)
[2022-10-29 08:00] VITALS: BP 123/77
[2022-10-29 09:00] VITALS: BP 123/77
[2022-10-29] MEDS: APIXABAN 5 MG TAB PO SCH ×2 (09:45→20:18)
[2022-10-29] MEDS: ASPirin 81 mg TAB PO SCH (09:46)
[2022-10-29] MEDS: DOXAZOSIN MESYL 2 MG TAB PO SCH (09:46)
[2022-10-29] MEDS: METOPROLOL TARTRATE 25 MG TAB PO SCH ×2 (09:46→20:18)
[2022-10-29] MEDS: AMIODARONE HCL 200 MG TAB PO SCH ×2 (09:46→20:18)
[2022-10-29] MEDS: PANTOPRAZOLE 40 MG TAB PO SCH (09:46)
[2022-10-29 17:00] VITALS: BP 120/72
[2022-10-29] MEDS: ATORVASTATIN 20 MG TAB PO SCH (20:19)
[2022-10-29 22:00] VITALS: BP 122/74
[2022-10-30] MEDS: MORPHINE SULFATE INJ 2 MG/ml SYRG IV PRN ×5 (01:27→22:00)
[2022-10-30] MEDS: HYDROcodone-ACET 5/325MG TAB PO PRN ×2 (03:23→20:20)
[2022-10-30 05:00] VITALS: BP 143/75
[2022-10-30] MEDS: CEFEPIME 1GM/ 50ML 50 ML IV SCH ×2 (06:35→18:07)
[2022-10-30 09:06] VITALS: BP 131/80
[2022-10-30] MEDS: ASPirin 81 mg TAB PO SCH (09:34)
[2022-10-30] MEDS: AMIODARONE HCL 200 MG TAB PO SCH ×2 (09:34→21:59)
[2022-10-30] MEDS: DOXAZOSIN MESYL 2 MG TAB PO SCH (09:34)
[2022-10-30] MEDS: PANTOPRAZOLE 40 MG TAB PO SCH (09:34)
[2022-10-30] MEDS: METOPROLOL TARTRATE 25 MG TAB PO SCH ×2 (09:35→21:58)
[2022-10-30] MEDS: APIXABAN 5 MG TAB PO SCH ×2 (09:35→21:57)
[2022-10-30 13:00] VITALS: BP 133/77
[2022-10-30 17:11] VITALS: BP 119/74
[2022-10-30] MEDS: ATORVASTATIN 20 MG TAB PO SCH (21:58)
[2022-10-30 22:00] VITALS: BP 134/80
[2022-10-31] MEDS: MORPHINE SULFATE INJ 2 MG/ml SYRG IV PRN ×3 (02:11→10:07)
[2022-10-31] MEDS: HYDROcodone-ACET 5/325MG TAB PO PRN (02:47)
[2022-10-31 05:00] VITALS: BP 139/82
[2022-10-31] MEDS: CEFEPIME 1GM/ 50ML 50 ML IV SCH (05:59)
[2022-10-31 08:00] VITALS: BP 146/81
[2022-10-31] MEDS: AMIODARONE HCL 200 MG TAB PO SCH (09:29)
[2022-10-31] MEDS: DOXAZOSIN MESYL 2 MG TAB PO SCH (09:29)
[2022-10-31] MEDS: APIXABAN 5 MG TAB PO SCH (09:30)
[2022-10-31] MEDS: PANTOPRAZOLE 40 MG TAB PO SCH (09:30)
[2022-10-31] MEDS: METOPROLOL TARTRATE 25 MG TAB PO SCH (09:30)
[2022-10-31] MEDS: ASPirin 81 mg TAB PO SCH (09:30)
[2022-10-31 10:37] VITALS: BP 146/81
[2022-10-31] MEDS ORDERED: LIDOCAINE 1% (LOCAL ANESTH.) PF 5ml SDV ID ONE (10:45)
== END 2022-10-31 11:28 | DRG 52 ==
LOC: EDBD 17:41 → ER 17:41 → EDSEX 17:41 → OVERFLOW 21:59 → CENTRAL 10-27 14:43
PROVIDERS: ADMIT Nurse Practitioner Family; ATTEND Family Medicine
PROC: 05HD33Z Insertion of Infusion Device into Right Cephalic Vein, Percutaneous Approach (ICD-10-PCS; principal; 2022-10-31)
PROC: B54MZZA Ultrasonography of Right Upper Extremity Veins, Guidance (ICD-10-PCS; 2022-10-31)
DX: G93.41 Metabolic encephalopathy (principal); E46 Unspecified protein-calorie malnutrition; E87.0 Hyperosmolality and hypernatremia; I13.0 Hypertensive heart and chronic kidney disease with heart failure and stage 1 through stage 4 chronic kidney disease, or unspecified chronic kidney disease; N17.9 Acute kidney failure, unspecified; E88.09 Other disorders of plasma-protein metabolism, not elsewhere classified; H44.002 Unspecified purulent endophthalmitis, left eye; E87.1 Hypo-osmolality and hyponatremia; I50.40 Unspecified combined systolic (congestive) and diastolic (congestive) heart failure; L89.152 Pressure ulcer of sacral region, stage 2; N39.0 Urinary tract infection, site not specified; E86.0 Dehydration; F17.210 Nicotine dependence, cigarettes, uncomplicated; E78.5 Hyperlipidemia, unspecified; Z66 Do not resuscitate; H49.9 Unspecified paralytic strabismus; E11.22 Type 2 diabetes mellitus with diabetic chronic kidney disease; I25.10 Atherosclerotic heart disease of native coronary artery without angina pectoris; G31.84 Mild cognitive impairment of uncertain or unknown etiology; Z20.822 Contact with and (suspected) exposure to COVID-19; J44.9 Chronic obstructive pulmonary disease, unspecified; M54.50 Low back pain, unspecified; G89.29 Other chronic pain; R26.9 Unspecified abnormalities of gait and mobility; N18.9 Chronic kidney disease, unspecified; I25.2 Old myocardial infarction; Z68.22 Body mass index [BMI] 22.0-22.9, adult; Z88.8 Allergy status to other drugs, medicaments and biological substances; Z82.49 Family history of ischemic heart disease and other diseases of the circulatory system; Z91.199 Patient's noncompliance with other medical treatment and regimen due to unspecified reason; Z86.718 Personal history of other venous thrombosis and embolism; Z92.3 Personal history of irradiation; Z90.49 Acquired absence of other specified parts of digestive tract
CPT/HCPCS: 36415; 80053; 81001; 83605; 83735; 83880; 84484; 85025; 85379; 87040; 87081; 87086; 87088; 87186; 87426; 93005; C9113; G0378; J2405